=== PATIENT | female | born 1980 | race American Indian/Alaskan Native ===

== ENCOUNTER 2016-11-20 15:36 | Emergency (ER) | payer MEDICAID, OTHER | END 2016-11-20 16:00 | disposition left against medical advice (07) | LOC: DL.ED 15:36 | DX: Z53.21 Procedure and treatment not carried out due to patient leaving prior to being seen by health care provider (principal) ==

== ENCOUNTER 2017-07-22 20:59 | Emergency (ER) | payer MEDICAID, OTHER ==
[2017-07-22] MEDS ORDERED: Nitrofurantoin Monohydrate/Macrocrystalline 100 MG Cap PO ONE (22:55)
--- NOTE | 2017-07-22 23:01 | EDM.PDOC ---
ED HPI GENERAL MEDICAL PROBLEM - General Chief Complaint: Genitourinary Problem Stated Complaint: UTI [id number] Time Seen by Provider: 07/22/17 22:56 Source of Information: Reports: Patient History Limitations: Reports: No Limitations - History of Present Illness INITIAL COMMENTS - FREE TEXT/NARRATIVE: burning with urination past couple of days, unable to get in to clinic as was in [facility]. No back pain, some chills. Treatments IN HOUSE COUNSEL: Reports: NSAIDS - Related Data Allergies Allergy/AdvReac Type Severity Reaction Status Date / Time chlorpheniramine Allergy Cannot Verified 07/22/17 21:19 [From [facility]] Remember codeine [From [facility]] Allergy Cannot Verified 07/22/17 21:19 Remember dihydrocodeine bitartrate Allergy Cannot Verified 07/22/17 21:19 [From [facility]] Remember phenylephrine HCl Allergy Cannot Verified 07/22/17 21:19 [From [facility]] Remember pseudoephedrine HCl Allergy Cannot Verified 07/22/17 21:19 [From [facility]] Remember Home Meds: Home Meds medroxyPROGESTERone Acetate [Depo-Provera] 150 mg IM ASDIRECTED 07/11/15 [ History] buPROPion [Wellbutrin] 100 mg PO DAILY 07/22/17 [History] hydrOXYzine HCl [Atarax] 10 mg PO Q6H PRN 07/22/17 [History] traZODone HCl [Trazodone HCl] 50 mg PO DAILY 07/22/17 [History] Past Medical History - Past Health History Medical/Surgical History: Denies Medical/Surgical History HEENT History: Reports: None Cardiovascular History: Reports: None Respiratory History: Reports: None Gastrointestinal History: Reports: None, Cholelithiasis, Pancreatitis Genitourinary History: Reports: None Neurological History: Reports: None Psychiatric History: Reports: ADD, Anxiety, Depression Hematologic History: Reports: None Dermatologic History: Reports: None - Infectious Disease History Infectious Disease History: Reports: Chicken Pox - Past Surgical History GI Surgical History: Reports: Cholecystectomy Other GI Surgeries/Procedures: December 03, 2016 Social & Family History - Tobacco Use Smoking Status *Q: Current Some Day Smoker Years of Tobacco use: 20 Packs/Tins Daily: 2 Second Hand Smoke Exposure: Yes - Caffeine Use Caffeine Use: Reports: Coffee, Soda, Tea - Recreational Drug Use Recreational Drug Use: No ED ROS GENERAL - Review of Systems Review Of Systems: See Below Constitutional: Reports: Chills HEENT: Reports: Throat Pain Respiratory: Reports: No Symptoms Cardiovascular: Reports: No Symptoms GI/Abdominal: Reports: No Symptoms : Reports: Dysuria Musculoskeletal: Reports: Back Pain (chronic) Skin: Reports: No Symptoms Neurological: Reports: No Symptoms ED EXAM, RENAL/ - Physical Exam Exam: See Below Exam Limited By: No Limitations General Appearance: Alert Eye Exam: Bilateral Eye: EOMI Ears: Normal External Exam, Normal TMs ( mild effusion right) Nose: Normal Inspection Throat/Mouth: Normal Inspection Head: Atraumatic, Normocephalic Neck: Normal Inspection Respiratory/Chest: No Respiratory Distress, Lungs Clear Cardiovascular: Normal Peripheral Pulses, Regular Rate, Rhythm GI/Abdominal: Normal Bowel Sounds, Non-Tender Back Exam: No: CVA Tenderness (L), CVA Tenderness (R) Extremities: Normal Inspection Neurological: Alert, Oriented Skin Exam: Tattoo(s) Course - Vital Signs Last Recorded V/S: Last Vital Signs Temp 98.7 F 07/22/17 21:04 Pulse 92 07/22/17 21:04 Resp 18 07/22/17 21:04 BP Pulse Ox 97 07/22/17 21:04 - Orders/Labs/Meds Labs: Laboratory Tests 07/22/17 Range/Units 21:03 Urine Color Yellow (YELLOW) Urine Appearance Cloudy (CLEAR) Urine pH 5.5 (5.0-9.0) Ur Specific [place] 1.015 (1.005-1.030) Urine Protein Negative (NEGATIVE) Urine Glucose (UA) Negative (NEGATIVE) Urine Ketones Negative (NEGATIVE) Urine Occult Blood Trace-intact H (NEGATIVE) Urine Nitrite Positive H (NEGATIVE) Urine Bilirubin Negative (NEGATIVE) Urine Urobilinogen 0.2 (0.2-1.0) mg/dL Ur Leukocyte Esterase Moderate H (NEGATIVE) Urine RBC 0-5 /HPF Urine WBC Semi-packed H (0-5/HPF) /HPF Ur Epithelial Cells Many H /HPF Urine Bacteria Many H (0-FEW/HPF) /HPF Meds: Medications Discontinued Medications Generic Name Dose Route Start Last Admin Trade Name Freq PRN Reason Stop Dose Admin Nitrofurantoin Macrocrystals 100 mg 07/22/17 22:55 Macrobid PO 07/22/17 22:56 ONETIME ONE Departure - Departure Time of Disposition: 22:58 Disposition: Home, Self-Care 01 Condition: Good Clinical Impression: UTI, Urinary tract infectious disease - Discharge Information Instructions: Urinary Tract Infection, Adult Additional Instructions: increase fluid intake macrobid 100mg one twice daily for one week OTC - AZO or uristat per package instructions, to manage burning sensation
== END 2017-07-22 23:04 | disposition home or self-care (01) ==
LOC: DL.ED 20:59
DX: N39.0 Urinary tract infection, site not specified (principal); F17.210 Nicotine dependence, cigarettes, uncomplicated; Z88.8 Allergy status to other drugs, medicaments and biological substances; Z88.5 Allergy status to narcotic agent; Z79.899 Other long term (current) drug therapy
CPT/HCPCS: 81001; 99283; A9270

== ENCOUNTER 2019-08-03 06:35 | Day surgery (SDC) | payer MEDICAID ==
[~2019-08-03 06:35] MED LIST: Dextrose 5%-0.45% NaCl 1,000 ML IV SCH; Sodium Chloride 0.9% 10 ML Syringe FLUSH PRN
[2019-08-03] MEDS ORDERED: fentaNYL 100 MCG/2 ML SDV IV ONE ×3 (06:36→07:25)
[2019-08-03] MEDS ORDERED: Midazolam 1 MG/ML 2 ML SDV IV ONE ×3 (06:36→07:26)
[2019-08-03] MEDS ORDERED: Midazolam 1 MG/ML 2 ML SDV ONE (06:38)
[2019-08-03] MEDS ORDERED: fentaNYL 100 MCG/2 ML SDV ONE (06:38)
[2019-08-03 10:01] VITALS: BP 126/76; PULSE 74
--- NOTE | 2019-08-03 14:40 | OR ---
DATE: 08/03/2019 PROCEDURES: Esophagogastroduodenoscopy and multiple pinch biopsies. INSTRUMENT USED: [id number]-[id number] Olympus video panendoscope. PREMEDICATIONS: No oral or topical anesthesia used. Fentanyl 100 mcg intravenous, Versed 2 mg intravenous. The procedure was done under pulse oximetry, BP recording, and panel monitor. INDICATION: The patient with persistent diarrhea and dyspepsia, unexplained and not responsive to medical measures. Esophagogastroduodenoscopy is performed for detection of any active erosive lesions, H pylori status to be determined, small bowel biopsies to be obtained for celiac disease if indicated, endoscopic hemostasis therapy if needed. PROCEDURE IN DETAIL: The scope was passed with ease. Adequate visualization of the esophagus was made from proximal to distal areas. No upper esophageal lesions identified. No distal esophageal stricture. No uphill or downhill esophageal varices. No Alysia-[place] tear. No evidence of erosive esophagitis by [place] criteria. No esophageal polyp or tumor mass identified. Z-line was seen at around 40 cm distal to the oral verge, configuration consistent with grade 1 by ZAP classification. No proximal gastric varices noted. Gastric fundus examination by retroflexion showed no polypoid lesions. No gastric ulcer, malignant mass, or vascular ectasia identified. Duodenal bulb showed no ulcer. Visualized second part of the duodenum was unremarkable. Multiple pinch biopsies, 4 in number, were taken from different areas of the second part of the duodenum, and tissues were also obtained from the duodenal bulb at 9 and 12 o'clock positions and sent for any histopathologic evidence of celiac disease. Multiple pinch biopsies were also obtained from the gastric antrum and proximal body and sent for PyloriTek test for H pylori and histopathology. No bleeding was noted from any of the visualized areas at the completion of examination. Photographs were taken of the duodenal bulb, gastric antrum, fundus, and distal esophagus. IMPRESSION: Normal study. The patient tolerated the procedure well. [facility] /[id number]
== END 2019-08-03 09:40 | disposition home or self-care (01) ==
LOC: DL.ENDO 06:35
PROVIDERS: ATTEND Internal Medicine Gastroenterology
DX: K31.89 Other diseases of stomach and duodenum (principal); R19.7 Diarrhea, unspecified; F41.1 Generalized anxiety disorder; F32.9 Major depressive disorder, single episode, unspecified; E66.09 Other obesity due to excess calories; Z90.49 Acquired absence of other specified parts of digestive tract; Z88.8 Allergy status to other drugs, medicaments and biological substances; Z68.38 Body mass index [BMI] 38.0-38.9, adult
CPT/HCPCS: 43239; 87077; J2250; J3010; J7042

== ENCOUNTER 2019-08-06 06:06 | Day surgery (SDC) | payer MEDICAID ==
[2019-08-06] MEDS ORDERED: Midazolam 1 MG/ML 2 ML SDV IV ONE ×8 (06:07→07:09)
[2019-08-06] MEDS ORDERED: fentaNYL 100 MCG/2 ML SDV IV ONE ×6 (06:07→07:11)
[2019-08-06] MEDS ORDERED: Midazolam 1 MG/ML 2 ML SDV ONE (06:16)
[2019-08-06] MEDS ORDERED: fentaNYL 100 MCG/2 ML SDV ONE (06:16)
[2019-08-06] MEDS ORDERED: Dextrose 5%-0.45% NaCl 1,000 ML IV SCH (07:00)
--- NOTE | 2019-08-06 08:06 | OR ---
DATE: 08/06/2019 PROCEDURES: Total colonoscopy and multiple pinch biopsies. INSTRUMENT USED: [id number]-[id number] Olympus video colonoscope. PREMEDICATIONS: Fentanyl 150 mcg intravenous, Versed 4 mg intravenous, nasal O2 cannula. The procedure was done under pulse oximetry, BP recording, and booker. INDICATION: The patient with chronic diarrhea, unexplained and not responsive to medical measures. Colonoscopic examination is done for detection of any polypoid lesions and removal, biopsies to be obtained for any evidence of microscopic colitis, endoscopic hemostasis therapy if needed. DESCRIPTION OF PROCEDURE: Initial rectal exam showed external hemorrhoidal tags. Rigid anoscopy was normal. The colonoscope was passed with ease up to the ileocecal area. Photographs were taken of the normal-appearing cecum identified by thin-lipped ileocecal folds preventing further advancement of the instrument to visualize terminal ileum. No bleeding was noted from any of the visualized areas at the commencement of the examination. The bowel preparation was found to be adequate, Rodney scale 3 in all the regions, total score of 9. No stricture. No vascular ectasia. No large isolated ulcerations seen. No evidence of diffuse inflammatory bowel disease in the form of friability, contact bleeding, or ulcerations. No polyp or tumor mass identified. Probing the proximal sides of folds and flexures using adequate distention and clearing up the stool material, withdrawal of the scope was made. Multiple pinch biopsies were taken from the normal-appearing mucosa of the mid transverse colon, mid descending colon, and rectosigmoid, and sent for any histopathologic evidence of microscopic colitis. No bleeding was noted from any of the visualized areas at the completion of examination. IMPRESSION: External hemorrhoids. The patient tolerated the procedure well. [facility] /[id number]
[2019-08-06 11:23] VITALS: BP 105/67; PULSE 69
== END 2019-08-06 10:14 | disposition home or self-care (01) ==
LOC: DL.ENDO 06:06
PROVIDERS: ATTEND Internal Medicine Gastroenterology
DX: K52.9 Noninfective gastroenteritis and colitis, unspecified (principal); K64.4 Residual hemorrhoidal skin tags; E66.09 Other obesity due to excess calories; F41.1 Generalized anxiety disorder; F32.9 Major depressive disorder, single episode, unspecified; Z90.49 Acquired absence of other specified parts of digestive tract; Z88.8 Allergy status to other drugs, medicaments and biological substances; Z68.38 Body mass index [BMI] 38.0-38.9, adult
CPT/HCPCS: 45380; J2250; J3010; J7042

== ENCOUNTER 2019-11-24 19:06 | Observation (INO) | payer MEDICAID ==
[2019-11-24 20:11] LABS: ANION GAP 15.9 mEq/L (7-13); CHLORIDE,CL 104 mmol/L (98-107); SODIUM,NA 142 mmol/L (136-145)
[2019-11-24] MEDS ORDERED: Sodium Chloride 0.9% 1,000 ML IV ONE (21:09)
[2019-11-24] MEDS ORDERED: Iopamidol 612 MG/ML 100 ML Bottle IVPUSH ONE (21:09)
[2019-11-24] MEDS: Sodium Chloride 0.9% 10 ML Syringe FLUSH PRN (21:20)
[2019-11-24] MEDS ORDERED: Ondansetron 4 MG/2 ML SDV IV ONE (21:22)
[2019-11-24] MEDS ORDERED: fentaNYL 100 MCG/2 ML SDV IVPUSH ONE (21:27)
--- NOTE | 2019-11-24 21:30 | EDM.PDOC ---
<Yemi Sumner - Last Filed: 11/24/19 21:20> ED HPI GENERAL MEDICAL PROBLEM - General Chief Complaint: Abdominal Pain Stated Complaint: PAIN IN THE STOMACH Time Seen by Provider: 11/24/19 21:20 Source of Information: Reports: Patient History Limitations: Reports: No Limitations - History of Present Illness INITIAL COMMENTS - FREE TEXT/NARRATIVE: Patient presents for epigastric pain. She has a PMH of cholecystitis, s/p cholecystectomy, s/p bilateral tubal ligation. She began having worsening epigastric pain, 5-7/10, constant, sharp, that radiates to her back. This is associated with nausea. It began last night and she believes it was triggered by gravy as this is what started her pain that lead to her cholecystectomy. She has not tried any medications for the pain. Denies fever, chills. Epigastric Pain Score (Numeric/FACES): 4 - Related Data Allergies Allergy/AdvReac Type Severity Reaction Status Date / Time chlorpheniramine Allergy Cannot Verified 11/24/19 19:34 [From [facility]] Remember codeine [From [facility]] Allergy Cannot Verified 11/24/19 19:34 Remember dihydrocodeine bitartrate Allergy Cannot Verified 11/24/19 19:34 [From [facility]] Remember phenylephrine HCl Allergy Cannot Verified 11/24/19 19:34 [From [facility]] Remember pseudoephedrine Allergy Cannot Verified 11/24/19 19:34 [From [facility]] Remember pseudoephedrine HCl Allergy Cannot Verified 11/24/19 19:34 [From [facility]] Remember triprolidine [From [facility]] Allergy Cannot Verified 11/24/19 19:34 Remember donagel Allergy Cannot Uncoded 11/24/19 19:34 Remember Home Meds: Home Meds Pnv No.95/Ferrous Fum/Folic AC [ Vitamins Tablet] 1 tab PO DAILY 03/30/18 [History] Ergocalciferol (Vitamin D2) [Vitamin D2] 50,000 unit PO WEEKLY 08/02/19 [History] Sertraline HCl 25 mg PO DAILY 11/24/19 [History] buPROPion [Wellbutrin] 75 mg PO 1600 11/24/19 [History] buPROPion [Wellbutrin] 150 mg PO DAILY 11/24/19 [History] busPIRone [Buspar] 15 mg PO BID 11/24/19 [History] Past Medical History - Past Health History Medical/Surgical History: Denies Medical/Surgical History HEENT History: Reports: Impaired Vision Other HEENT History: wears glasses Cardiovascular History: Reports: None Respiratory History: Reports: None Gastrointestinal History: Reports: Cholelithiasis, Pancreatitis Genitourinary History: Reports: None [employer] History: Reports: Spontaneous Musculoskeletal History: Reports: None Neurological History: Reports: None Psychiatric History: Reports: ADD, Anxiety, Depression Endocrine/Metabolic History: Reports: Other (See Below) Other Endocrine/Metabolic History: PREDIABETIC Hematologic History: Reports: None Immunologic History: Reports: None Oncologic (Cancer) History: Reports: None Dermatologic History: Reports: None - Infectious Disease History Infectious Disease History: Reports: Chicken Pox - Past Surgical History HEENT Surgical History: Reports: Oral Surgery, Tonsillectomy Cardiovascular Surgical History: Reports: None GI Surgical History: Reports: Cholecystectomy Other GI Surgeries/Procedures: December 03, 2016 Female Surgical History: Reports: Tubal Ligation, Other (See Below) Other Female Surgeries/Procedures: CULPOSCOMY Endocrine Surgical History: Reports: None Neurological Surgical History: Reports: None Musculoskeletal Surgical History: Reports: None Social & Family History - Family History Family Medical History: Noncontributory Cardiac: Reports: Arrhythmia, Other (See Below) Other Cardiac Family History: heart disease Psychiatric: Reports: Depression Endocrine/Metabolic: Reports: Diabetes, Type I Oncologic: Reports: Esophageal Other Oncologic Family History: throat cancer - Tobacco Use Smoking Status *Q: Never Smoker Second Hand Smoke Exposure: No - Caffeine Use Caffeine Use: Reports: Soda - Recreational Drug Use Recreational Drug Use: Yes Drug Use in Last 12 Months: No ED ROS GENERAL - Review of Systems Review Of Systems: Comprehensive ROS is negative, except as noted in HPI. ED EXAM, GI/ABD - Physical Exam Exam: See Below Exam Limited By: No Limitations General Appearance: Alert, WD/WN, No Apparent Distress Ears: Normal External Exam, Hearing Grossly Normal Nose: Normal Inspection, No Blood Throat/Mouth: Normal Inspection, Normal Lips, Normal Voice Head: Atraumatic Neck: Normal Inspection Respiratory/Chest: No Respiratory Distress, Lungs Clear, Normal Breath Sounds, No Accessory Muscle Use Cardiovascular: Normal Peripheral Pulses, Regular Rate, Rhythm GI/Abdominal Exam: Normal Bowel Sounds, Soft, No Distention, Tender (Epigastric ) (Female) Exam: Deferred Back Exam: Normal Inspection, Full Range of Motion Extremities: Normal Inspection, Normal Range of Motion, Non-Tender Neurological: Alert, Oriented, Normal Gait, No Motor/Sensory Deficits Psychiatric: Normal Affect, Normal Mood Skin Exam: Warm Departure - Departure Disposition: Refer to Observation Clinical Impression: Pancreatitis Qualifiers: Chronicity: acute Pancreatitis type: unspecified pancreatitis type Acute pancreatitis complication: unspecified Qualified Code(s): K85.90 - Acute pancreatitis without necrosis or infection, unspecified - Discharge Information Sepsis Event Note (ED) - Evaluation Sepsis Screening Result: No Definite Risk <Payal Nroiega - Last Filed: 11/24/19 23:37> ED HPI GENERAL MEDICAL PROBLEM - History of Present Illness Onset: Today, Sudden Course - Vital Signs Last Recorded V/S: Last Vital Signs Temp 97.8 F 11/24/19 22:33 Pulse 82 11/24/19 22:33 Resp 14 11/24/19 22:33 BP 135/68 11/24/19 22:33 Pulse Ox 100 11/24/19 22:33 - Orders/Labs/Meds Orders: Active Orders 24 hr Category Date Time Status Peripheral IV Care [RC] . DIRECTED Care 11/24/19 21:09 Active Sodium Chloride 0.9% [Saline Flush] Med 11/24/19 21:09 Active 10 ml FLUSH ASDIRECTED PRN Peripheral IV Insertion Adult [OM.PC] Stat Oth 11/24/19 21:09 Ordered Medication Orders Acetaminophen (Tylenol) 650 mg PO Q4H PRN PRN Reason: Pain (Mild 1-3)/fever Heparin Sodium (Porcine) (Heparin Sodium) 5,000 units SUBCUT Q8HR JOSE ALFREDO Morphine Sulfate (Morphine) 1 mg IVPUSH Q2H PRN PRN Reason: Pain (severe 7-10) Non-Formulary Medication (Bupropion [Wellbutrin]) 75 mg PO 1600 JOSE ALFREDO Non-Formulary Medication (Bupropion [Wellbutrin]) 150 mg PO DAILY [facility] Non-Formulary Medication (Buspirone [Buspar]) 15 mg PO BID [facility] Non-Formulary Medication (Sertraline Hcl [Sertraline Hcl]) 25 mg PO DAILY [facility] Ondansetron HCl (Zofran Odt) 4 mg PO Q6H PRN PRN Reason: nausea, able to take PO Oxycodone HCl (Oxycodone) 5 mg PO Q4H PRN PRN Reason: Pain (moderate 4-6) Sodium Chloride (Saline Flush) 10 ml FLUSH ASDIRECTED PRN PRN Reason: Keep Vein Open Last Admin: 11/24/19 21:20 Dose: 10 ml Documented by: SUSI Labs: Laboratory Tests 11/24/19 11/24/19 Range/Units 19:45 19:45 WBC 8.4 (5.0-10.0) 10^3/uL RBC 5.14 (4.2-5.4) 10^6/uL Hgb 14.3 D (12.0-16.0) g/dL Hct 44.3 (37.0-47.0) % MCV 86.2 (80-100) fL MCH 27.8 (27.0-34.0) pg MCHC 32.3 L (33.0-35.0) g/dL Plt Count 247 (150-450) 10^3/uL Neut % (Auto) 72.4 (42.2-75.2) % Lymph % (Auto) 20.6 (20.5-50.1) % [place] % (Auto) 5.1 (2-8) % Eos % (Auto) 1.7 (1.0-3.0) % Baso % (Auto) 0.2 (0.0-1.0) % Sodium 142 (136-145) mmol/L Potassium 3.9 (3.5-5.1) mmol/L Chloride 104 (98-107) mmol/L Carbon Dioxide 26 (21-32) mmol/L Anion Gap 15.9 H (7-13) mEq/L BUN 12 (7-18) mg/dL Creatinine 0.92 (0.55-1.02) mg/dL Est Cr Clr Drug Dosing 91.42 mL/min Estimated GFR (MDRD) > 60 BUN/Creatinine Ratio 13.0 (No establ ref range) Glucose 200 H (74-99) mg/dL Calcium 8.5 (8.5-10.1) mg/dL Total Bilirubin 0.3 (0.2-1.0) mg/dL AST 20 (15-37) U/L ALT 39 (14-59) U/L Alkaline Phosphatase 122 H (46-116) U/L Total Protein 7.3 (6.4-8.2) g/dL Albumin 3.4 (3.4-5.0) g/dL Globulin 3.9 Albumin/Globulin Ratio 0.9 Amylase 260 H (25-115) U/L Lipase 3415 H (73-393) U/L Meds: Medications Generic Name Dose Route Start Last Admin Trade Name Fredwayne PRN Reason Stop Dose Admin Acetaminophen 650 mg 11/24/19 23:24 Tylenol PO Q4H PRN Pain (Mild 1-3)/fever Heparin Sodium (Porcine) 5,000 units 11/25/19 06:00 Heparin Sodium SUBCUT Q8HR JOSE ALFREDO Morphine Sulfate 1 mg 11/24/19 23:24 Morphine IVPUSH Q2H PRN Pain (severe 7-10) Non-Formulary Medication 75 mg 11/25/19 16:00 Bupropion [Wellbutrin] PO 1600 JOSE ALFREDO Non-Formulary Medication 150 mg 11/25/19 09:00 Bupropion [Wellbutrin] PO DAILY JOSE ALFREDO Non-Formulary Medication 15 mg 11/25/19 09:00 Buspirone [Buspar] PO BID JOSE ALFREDO Non-Formulary Medication 25 mg 11/25/19 09:00 Sertraline Hcl [Sertraline Hcl] PO DAILY JOSE ALFREDO Ondansetron HCl 4 mg 11/24/19 23:24 Zofran Odt PO Q6H PRN nausea, able to take PO Oxycodone HCl 5 mg 11/24/19 23:24 Oxycodone PO Q4H PRN Pain (moderate 4-6) Sodium Chloride 10 ml 11/24/19 21:09 11/24/19 21:20 Saline Flush FLUSH 10 ml ASDIRECTED PRN Administration Keep Vein Open Discontinued Medications Generic Name Dose Route Start Last Admin Trade Name Freq PRN Reason Stop Dose Admin Fentanyl 100 mcg 11/24/19 21:27 11/24/19 21:34 Sublimaze IVPUSH 11/24/19 21:28 100 mcg ONETIME ONE Administration Sodium Chloride 1,000 mls @ 999 mls/hr 11/24/19 21:09 11/24/19 21:19 Normal Saline IV 11/24/19 22:09 999 mls/hr .BOLUS ONE Administration Iopamidol 100 ml 11/24/19 21:09 11/24/19 21:39 Isovue-300 (61%) IVPUSH 11/24/19 21:10 100 ml ONETIME ONE Administration Ondansetron HCl 4 mg 11/24/19 21:22 11/24/19 21:31 Zofran IV 11/24/19 21:23 4 mg ONETIME ONE Administration - Radiology Interpretation Free Text/Narrative:: CT Abdomen/Pelvis w/ contrast: PROCEDURE INFORMATION: Exam: CT Abdomen And Pelvis With Contrast Exam date and time: 11/24/2019 9:44 PM Age: 38 years old Clinical indication: Other: Upper abd pain, elevated liver enzymes; Additional info: ? Pancreatitis TECHNIQUE: Imaging protocol: Computed tomography of the abdomen and pelvis with intravenous contrast. Radiation optimization: All CT scans at this facility use at least one of these dose optimization techniques: automated exposure control; mA and/or kV adjustment per patient size (includes targeted exams where dose is matched to clinical indication); or iterative reconstruction. Contrast material: [id number]; Contrast volume: 100 ml; Contrast route: INTRAVENOUS (IV); COMPARISON: MR Abdomen wo Cont 08/01/2019 8:47 AM FINDINGS: Lungs: The lung bases are clear. There are no pleural effusions. Liver: There is diffuse fatty infiltration of the liver. No focal hepatic lesions are identified. Gallbladder and bile ducts: The gallbladder is surgically absent. There is no intrahepatic biliary ductal dilatation. The common bile duct measures 11 mm in diameter. No filling defects are seen within the CBD. Pancreas: The pancreas is normal in appearance. There is, however, inflammation situated between the head of the pancreas and the 3rd portion of the duodenum. The finding is consistent with very mild pancreatitis. Spleen: The spleen is normal in size. Adrenals: The adrenal glands are normal in appearance. Kidneys and ureters: Neither kidney shows evidence of hydronephrosis or renal stone. The ureters are normal in caliber. No intraluminal filling defects are identified. Stomach and bowel: The stomach is not distended. No pathologically dilated small bowel loops are identified. There is no evidence of colonic wall thickening or pericolonic inflammation. Appendix: There is a normal appendix in the right lower quadrant. Intraperitoneal space: There is no free air or free fluid in the abdomen or pelvis. Vasculature: The abdominal aorta is normal in caliber. The celiac axis, SMA and SHAREE are patent. Lymph nodes: No pathologically enlarged lymph nodes are identified in the abdomen or pelvis. Bladder: The urinary bladder appears normal. Reproductive: The uterus is normal in appearance. No adnexal masses are identifi ed. Bones/joints: There is normal alignment throughout the visualized portion of the spine. No acute fractures or aggressive bone lesions are identified. Soft tissues: The soft tissues are within normal limits. IMPRESSION: 1. The pancreas itself appears normal, but there is subtle inflammation between the head of the pancreas in the 3rd portion of the duodenum, a finding consistent with very mild acute pancreatitis. 2. Fatty infiltration of the liver, a finding which can be due to benign steatosis versus alcoholic or non alcoholic steatohepatitis. 3. The common bile duct is dilated to 11 mm, probably compensatory status post cholecystectomy. Recommend correlation with biliary chemistries. Thank you for allowing us to participate in the care of your patient. Dictated and Authenticated by: Victorina Fishman MD 11/24/2019 10:28 PM Central Time ([place] & [place]) see rad report - Re-Assessments/Exams Free Text/Narrative Re-Assessment/Exam: 11/24/19 23:36 I saw and evaluated the patient. Discussed with resident and agree with residents findings and plan as documented in the residents note. Departure - Departure Time of Disposition: 22:21 Condition: Fair - Discharge Information *PRESCRIPTION DRUG MONITORING PROGRAM REVIEWED*: No *COPY OF PRESCRIPTION DRUG MONITORING REPORT IN PATIENT SHANKAR: No Sepsis Event Note (ED) - Focused Exam Vital Signs: Vital Signs Temp Pulse Resp BP Pulse Ox 11/24/19 19:26 98.5 F 97 16 130/55 L 98 - My Orders Last 24 Hours: My Active Orders 11/24/19 21:09 Peripheral IV Care [RC] . DIRECTED Sodium Chloride 0.9% [Saline Flush] 10 ml FLUSH ASDIRECTED PRN Peripheral IV Insertion Adult [OM.PC] Stat - Assessment/Plan Last 24 Hours: My Active Orders 11/24/19 21:09 Peripheral IV Care [RC] . DIRECTED Sodium Chloride 0.9% [Saline Flush] 10 ml FLUSH ASDIRECTED PRN Peripheral IV Insertion Adult [OM.PC] Stat
--- NOTE | 2019-11-24 22:29 | CT ---
PROCEDURE INFORMATION: Exam: CT Abdomen And Pelvis With Contrast Exam date and time: 11/24/2019 9:44 PM Age: 38 years old Clinical indication: Other: Upper abd pain, elevated liver enzymes; Additional info: ? Pancreatitis TECHNIQUE: Imaging protocol: Computed tomography of the abdomen and pelvis with intravenous contrast. Radiation optimization: All CT scans at this facility use at least one of these dose optimization techniques: automated exposure control; mA and/or kV adjustment per patient size (includes targeted exams where dose is matched to clinical indication); or iterative reconstruction. Contrast material: [id number]; Contrast volume: 100 ml; Contrast route: INTRAVENOUS (IV); COMPARISON: MR Abdomen wo Cont 08/01/2019 8:47 AM FINDINGS: Lungs: The lung bases are clear. There are no pleural effusions. Liver: There is diffuse fatty infiltration of the liver. No focal hepatic lesions are identified. Gallbladder and bile ducts: The gallbladder is surgically absent. There is no intrahepatic biliary ductal dilatation. The common bile duct measures 11 mm in diameter. No filling defects are seen within the CBD. Pancreas: The pancreas is normal in appearance. There is, however, inflammation situated between the head of the pancreas and the 3rd portion of the duodenum. The finding is consistent with very mild pancreatitis. Spleen: The spleen is normal in size. Adrenals: The adrenal glands are normal in appearance. Kidneys and ureters: Neither kidney shows evidence of hydronephrosis or renal stone. The ureters are normal in caliber. No intraluminal filling defects are identified. Stomach and bowel: The stomach is not distended. No pathologically dilated small bowel loops are identified. There is no evidence of colonic wall thickening or pericolonic inflammation. Appendix: There is a normal appendix in the right lower quadrant. Intraperitoneal space: There is no free air or free fluid in the abdomen or pelvis. Vasculature: The abdominal aorta is normal in caliber. The celiac axis, SMA and SHAREE are patent. Lymph nodes: No pathologically enlarged lymph nodes are identified in the abdomen or pelvis. Bladder: The urinary bladder appears normal. Reproductive: The uterus is normal in appearance. No adnexal masses are identified. Bones/joints: There is normal alignment throughout the visualized portion of the spine. No acute fractures or aggressive bone lesions are identified. Soft tissues: The soft tissues are within normal limits. IMPRESSION: 1. The pancreas itself appears normal, but there is subtle inflammation between the head of the pancreas in the 3rd portion of the duodenum, a finding consistent with very mild acute pancreatitis. 2. Fatty infiltration of the liver, a finding which can be due to benign steatosis versus alcoholic or non alcoholic steatohepatitis. 3. The common bile duct is dilated to 11 mm, probably compensatory status post cholecystectomy. Recommend correlation with biliary chemistries.
[2019-11-24] MEDS ORDERED: Ondansetron 4 MG Tab.DIS PO PRN (23:24)
[2019-11-24] MEDS ORDERED: 50% Dextrose in Water 50 ML Syringe IVPUSH PRN (23:43)
--- NOTE | 2019-11-24 23:43 | PCM.HP ---
H&P History of Present Illness - General Date of Service: 11/24/19 Admit Problem/Dx: Admission Diagnosis/Problem Admission Diagnosis/Problem Pancreatitis Source of Information: Patient, Provider (ER) - History of Present Illness Initial Comments - Free Text/Narative: 58-year-old lady with a history of cholecystitis status post cholecystectomy about 3 years ago. No alcohol use. No known dyslipidemia. No known diabetes Presented with epigastric abdominal pain that started on the night of 22 November. The patient previously ate sub sandwich. Developed epigastric pain radiating to the back. Associated with nausea but no vomiting. No associated fever no chills. Pain is similar to what she experienced about 3 years ago. She does have a history of acid reflux disease but the symptoms today significantly different. She has been breast-feeding. Epigastric Pain Score (Numeric/FACES): 4 - Related Data Allergies/Adverse Reactions: Allergies Allergy/AdvReac Type Severity Reaction Status Date / Time chlorpheniramine Allergy Cannot Verified 11/24/19 19:34 [From [facility]] Remember codeine [From [facility]] Allergy Cannot Verified 11/24/19 19:34 Remember dihydrocodeine bitartrate Allergy Cannot Verified 11/24/19 19:34 [From [facility]] Remember phenylephrine HCl Allergy Cannot Verified 11/24/19 19:34 [From [facility]] Remember pseudoephedrine Allergy Cannot Verified 11/24/19 19:34 [From [facility]] Remember pseudoephedrine HCl Allergy Cannot Verified 11/24/19 19:34 [From [facility]] Remember triprolidine [From [facility]] Allergy Cannot Verified 11/24/19 19:34 Remember donagel Allergy Cannot Uncoded 11/24/19 19:34 Remember Home Medications: Home Meds Pnv No.95/Ferrous Fum/Folic AC [ Vitamins Tablet] 1 tab PO DAILY 03/30/18 [History] Ergocalciferol (Vitamin D2) [Vitamin D2] 50,000 unit PO WEEKLY 08/02/19 [History] Sertraline HCl 25 mg PO DAILY 11/24/19 [History] buPROPion [Wellbutrin] 75 mg PO 1600 11/24/19 [History] buPROPion [Wellbutrin] 150 mg PO DAILY 11/24/19 [History] busPIRone [Buspar] 15 mg PO BID 11/24/19 [History] Past Medical History - Past Health History Medical/Surgical History: Denies Medical/Surgical History HEENT History: Reports: Impaired Vision Other HEENT History: wears glasses Cardiovascular History: Reports: None Respiratory History: Reports: None Gastrointestinal History: Reports: Cholelithiasis, Pancreatitis Genitourinary History: Reports: None [employer] History: Reports: Spontaneous Musculoskeletal History: Reports: None Neurological History: Reports: None Psychiatric History: Reports: ADD, Anxiety, Depression Endocrine/Metabolic History: Reports: Other (See Below) Other Endocrine/Metabolic History: PREDIABETIC Hematologic History: Reports: None, Iron Deficiency Other Hematologic History: iron deficient during usually Immunologic History: Reports: None Oncologic (Cancer) History: Reports: None Dermatologic History: Reports: None - Infectious Disease History Infectious Disease History: Reports: Chicken Pox - Past Surgical History HEENT Surgical History: Reports: Oral Surgery, Tonsillectomy Cardiovascular Surgical History: Reports: None Respiratory Surgical History: Reports: None GI Surgical History: Reports: Cholecystectomy Other GI Surgeries/Procedures: December 03, 2016 Female Surgical History: Reports: Tubal Ligation, Other (See Below) Other Female Surgeries/Procedures: CULPOSCOMY, October 30, 2019-tubal Endocrine Surgical History: Reports: None Neurological Surgical History: Reports: None Musculoskeletal Surgical History: Reports: None Social & Family History - Family History Family Medical History: Noncontributory Cardiac: Reports: Arrhythmia, Other (See Below) Other Cardiac Family History: heart disease Psychiatric: Reports: Depression Endocrine/Metabolic: Reports: Diabetes, Type I Oncologic: Reports: Esophageal Other Oncologic Family History: throat cancer - Tobacco Use Smoking Status *Q: Former Smoker Years of Tobacco use: 17 Packs/Tins Daily: 0.2 Used Tobacco, but Quit: Yes Month/Year Tobacco Last Used: May 2017 Second Hand Smoke Exposure: No - Caffeine Use Caffeine Use: Reports: None - Recreational Drug Use Recreational Drug Use: No Drug Use in Last 12 Months: No H&P Review of Systems - Review of Systems: Review Of Systems: See Below General: Reports: Malaise. Denies: Fever, Chills Pulmonary: Denies: Shortness of Breath Cardiovascular: Denies: Chest Pain, Edema Gastrointestinal: Reports: Abdominal Pain, Nausea Psychiatric: Denies: Confusion Neurological: Denies: Confusion Exam - Exam Exam: See Below - Vital Signs Vital Signs: Last Vital Signs Temp 97.8 F 11/24/19 22:33 Pulse 82 11/24/19 22:33 Resp 14 11/24/19 22:33 BP 135/68 11/24/19 22:33 Pulse Ox 100 11/24/19 22:33 Weight: 276 lb 12.8 oz - Exam General: Alert, Oriented Neck: Supple Lungs: Clear to Auscultation, Normal Respiratory Effort Cardiovascular: Regular Rate, Regular Rhythm GI/Abdominal Exam: Normal Bowel Sounds, Soft, Tender (Epigastric), Other (Obese). No: Distended Extremities: No Pedal Edema Skin: Warm, Dry Neuro Extensive - Mental Status: Alert, Oriented x3, Normal Mood/Affect - Patient Data Lab Results Last 24 hrs: Laboratory Results - last 24 hr 11/24/19 11/24/19 11/24/19 Range/Units 19:45 19:45 22:46 WBC 8.4 (5.0-10.0) 10^3/uL RBC 5.14 (4.2-5.4) 10^6/uL Hgb 14.3 D (12.0-16.0) g/dL Hct 44.3 (37.0-47.0) % MCV 86.2 (80-100) fL MCH 27.8 (27.0-34.0) pg MCHC 32.3 L (33.0-35.0) g/dL Plt Count 247 (150-450) 10^3/uL Neut % (Auto) 72.4 (42.2-75.2) % Lymph % (Auto) 20.6 (20.5-50.1) % [place] % (Auto) 5.1 (2-8) % Eos % (Auto) 1.7 (1.0-3.0) % Baso % (Auto) 0.2 (0.0-1.0) % Sodium 142 (136-145) mmol/L Potassium 3.9 (3.5-5.1) mmol/L Chloride 104 (98-107) mmol/L Carbon Dioxide 26 (21-32) mmol/L Anion Gap 15.9 H (7-13) mEq/L BUN 12 (7-18) mg/dL Creatinine 0.92 (0.55-1.02) mg/dL Est Cr Clr Drug Dosing 91.42 mL/min Estimated GFR (MDRD) > 60 BUN/Creatinine Ratio 13.0 (No establ ref range) Glucose 200 H (74-99) mg/dL Calcium 8.5 (8.5-10.1) mg/dL Total Bilirubin 0.3 (0.2-1.0) mg/dL AST 20 (15-37) U/L ALT 39 (14-59) U/L Alkaline Phosphatase 122 H (46-116) U/L Total Protein 7.3 (6.4-8.2) g/dL Albumin 3.4 (3.4-5.0) g/dL Globulin 3.9 Albumin/Globulin Ratio 0.9 Amylase 260 H (25-115) U/L Lipase 3415 H (73-393) U/L Urine Color (YELLOW) Urine Appearance (CLEAR) Urine pH (5.0-9.0) Ur Specific [place] (1.005-1.030) Urine Protein (NEGATIVE) Urine Glucose (UA) (NEGATIVE) Urine Ketones (NEGATIVE) Urine Occult Blood (NEGATIVE) Urine Nitrite (NEGATIVE) Urine Bilirubin (NEGATIVE) Urine Urobilinogen (0.2-1.0) mg/dL Ur Leukocyte Esterase (NEGATIVE) Urine HCG, Qual Negative 11/24/19 Range/Units 22:47 WBC (5.0-10.0) 10^3/uL RBC (4.2-5.4) 10^6/uL Hgb (12.0-16.0) g/dL Hct (37.0-47.0) % MCV (80-100) fL MCH (27.0-34.0) pg MCHC (33.0-35.0) g/dL Plt Count (150-450) 10^3/uL Neut % (Auto) (42.2-75.2) % Lymph % (Auto) (20.5-50.1) % [place] % (Auto) (2-8) % Eos % (Auto) (1.0-3.0) % Baso % (Auto) (0.0-1.0) % Sodium (136-145) mmol/L Potassium (3.5-5.1) mmol/L Chloride (98-107) mmol/L Carbon Dioxide (21-32) mmol/L Anion Gap (7-13) mEq/L BUN (7-18) mg/dL Creatinine (0.55-1.02) mg/dL Est Cr Clr Drug Dosing mL/min Estimated GFR (MDRD) BUN/Creatinine Ratio (No establ ref range) Glucose (74-99) mg/dL Calcium (8.5-10.1) mg/dL Total Bilirubin (0.2-1.0) mg/dL AST (15-37) U/L ALT (14-59) U/L Alkaline Phosphatase (46-116) U/L Total Protein (6.4-8.2) g/dL Albumin (3.4-5.0) g/dL Globulin Albumin/Globulin Ratio Amylase (25-115) U/L Lipase (73-393) U/L Urine Color Yellow (YELLOW) Urine Appearance Clear (CLEAR) Urine pH 5.5 (5.0-9.0) Ur Specific [place] 1.025 (1.005-1.030) Urine Protein Negative (NEGATIVE) Urine Glucose (UA) Negative (NEGATIVE) Urine Ketones Negative (NEGATIVE) Urine Occult Blood Negative (NEGATIVE) Urine Nitrite Negative (NEGATIVE) Urine Bilirubin Negative (NEGATIVE) Urine Urobilinogen 0.2 (0.2-1.0) mg/dL Ur Leukocyte Esterase Negative (NEGATIVE) Urine HCG, Qual Result Diagrams: 11/24/19 19:45 11/24/19 19:45 - Problem List (1) Hyperglycemia SNOMED Code(s): 08241919 ICD Code: R73.9 - HYPERGLYCEMIA, UNSPECIFIED Status: Acute Current Visit: Yes (2) Depression SNOMED Code(s): 95748637 ICD Code: F32.9 - MAJOR DEPRESSIVE DISORDER, SINGLE EPISODE, UNSPECIFIED Status: Acute Current Visit: Yes (3) Anxiety SNOMED Code(s): 75119312 ICD Code: F41.9 - ANXIETY DISORDER, UNSPECIFIED Status: Acute Current Visit: Yes (4) Pancreatitis SNOMED Code(s): 02260052 ICD Code: K85.90 - ACUTE PANCREATITIS WITHOUT NECROSIS OR INFECTION, UNSP Status: Acute Current Visit: Yes Qualifiers: Chronicity: acute Pancreatitis type: unspecified pancreatitis type Acute pancreatitis complication: unspecified Qualified Code(s): K85.90 - Acute pancreatitis without necrosis or infection, unspecified Problem List Initiated/Reviewed/Updated: Yes Orders Last 24hrs: Active Orders 24 hr Category Date Time Status Admission Diagnosis [ADT] Stat ADT 11/24/19 22:20 Ordered Admission Status [Patient Status] [ADT] Routine ADT 11/24/19 22:20 Active Antiembolic Devices [RC] PER UNIT ROUTINE Care 11/24/19 23:26 Ordered Oxygen Therapy [RC] PRN Care 11/24/19 23:24 Ordered Peripheral IV Care [RC] . DIRECTED Care 11/24/19 21:09 Active Up With Assistance [RC] ASDIRECTED Care 11/24/19 23:24 Ordered VTE/DVT Education [RC] PER UNIT ROUTINE Care 11/24/19 23:24 Ordered Vital Signs [RC] Q4H Care 11/24/19 23:24 Ordered Nothing per Oral Now Diet [DIET] Diet 11/24/19 Breakfast Ordered BASIC METABOLIC PANEL,BMP [CHEM] AM Lab 11/25/19 05:15 Ordered CBC WITH AUTO DIFF [HEME] AM Lab 11/25/19 05:15 Ordered HEPATIC FUNCTION PANEL,HFP [CHEM] AM Lab 11/25/19 05:11 Ordered LIPASE [CHEM] AM Lab 11/25/19 05:11 Ordered LIPID PANEL [CHEM] AM Lab 11/25/19 05:11 Ordered Acetaminophen [Tylenol] Med 11/24/19 23:24 Ordered 650 mg PO Q4H PRN Heparin Sodium Med 11/25/19 06:00 Ordered 5,000 units SUBCUT Q8HR Morphine Med 11/24/19 23:24 Ordered 1 mg IVPUSH Q2H PRN Ondansetron [Zofran ODT] Med 11/24/19 23:24 Ordered 4 mg PO Q6H PRN Pantoprazole [ProTONIX] Med 11/25/19 21:00 Ordered 40 mg PO BEDTIME Sertraline HCl [Sertraline HCl] Med 11/25/19 09:00 Ordered 25 mg PO DAILY Sodium Chloride 0.9% [Saline Flush] Med 11/24/19 21:09 Active 10 ml FLUSH ASDIRECTED PRN Sodium Chloride 0.9% with KCl 20 mEq @ 150 mL/Hr (1000 Med 11/24/19 23:45 Ordered mL) NS + KCl 20mEq/L [Normal Saline with 20 mEq KCl] 1,000 ml IV ASDIRECTED buPROPion [Wellbutrin] Med 11/25/19 09:00 Ordered 150 mg PO DAILY buPROPion [Wellbutrin] Med 11/25/19 16:00 Ordered 75 mg PO 1600 busPIRone [Buspar] Med 11/25/19 09:00 Ordered 15 mg PO BID oxyCODONE Med 11/24/19 23:24 Ordered 5 mg PO Q4H PRN Antiembolic Hose [OM.PC] Per Unit Routine Oth 11/24/19 23:25 Ordered Peripheral IV Insertion Adult [OM.PC] Stat Oth 11/24/19 21:09 Ordered Resuscitation Status Routine Resus Stat 11/24/19 23:24 Ordered Medication Orders Acetaminophen (Tylenol) 650 mg PO Q4H PRN PRN Reason: Pain (Mild 1-3)/fever Heparin Sodium (Porcine) (Heparin Sodium) 5,000 units SUBCUT Q8HR JOSE ALFREDO Potassium Chloride/Sodium Chloride (Normal Saline With 20 Meq Kcl) 1,000 mls @ 150 mls/hr IV ASDIRECTED JOSE ALFREDO Morphine Sulfate (Morphine) 1 mg IVPUSH Q2H PRN PRN Reason: Pain (severe 7-10) Non-Formulary Medication (Bupropion [Wellbutrin]) 75 mg PO 1600 JOSE ALFREDO Non-Formulary Medication (Bupropion [Wellbutrin]) 150 mg PO DAILY [facility] Non-Formulary Medication (Buspirone [Buspar]) 15 mg PO BID [facility] Non-Formulary Medication (Sertraline Hcl [Sertraline Hcl]) 25 mg PO DAILY [facility] Ondansetron HCl (Zofran Odt) 4 mg PO Q6H PRN PRN Reason: nausea, able to take PO Oxycodone HCl (Oxycodone) 5 mg PO Q4H PRN PRN Reason: Pain (moderate 4-6) Pantoprazole Sodium (Protonix) 40 mg PO BEDTIME [facility] Sodium Chloride (Saline Flush) 10 ml FLUSH ASDIRECTED PRN PRN Reason: Keep Vein Open Last Admin: 11/24/19 21:20 Dose: 10 ml Documented by: SUSI Assessment/Plan Comment:: 38-year-old with a history of prior cholecystectomy resented with abdominal pain. CT of the abdomen is pending Clinically appears to have pancreatitis based on abdominal pain, elevated lipase Liver enzymes are normal. Follow CT results for possible stone in the common bile duct Recheck liver enzymes in the morning Recheck lipase in the morning Etiology of pancreatitis is unclear Will check triglyceride level Keep nothing by mouth except ice chips IV fluids Pain medication with oxycodone for moderate pain, IV morphine for severe pain Follow electrolytes and replace them as needed Elevated blood sugar noted We'll follow blood sugars Use supplemental insulin and hypoglycemia protocol if needed Depression, anxiety Continue home medications DVT prophylaxis with subcutaneous heparin
[2019-11-25] MEDS: Morphine 2 MG/ML SYRINGE IVPUSH PRN ×2 (00:02→07:44)
[2019-11-25] MEDS: Sodium Chloride 0.9% 10 ML Syringe FLUSH PRN (00:04)
[2019-11-25] MEDS: NS + KCl 20mEq/L 1,000 ML IV SCH ×2 (00:08→06:24)
[2019-11-25] MEDS: oxyCODONE 5 MG Tab PO PRN ×3 (00:21→20:31)
[2019-11-25 06:09] LABS: ANION GAP 12.8 mEq/L (7-13); CHLORIDE,CL 109 mmol/L (98-107); SODIUM,NA 142 mmol/L (136-145)
[2019-11-25] MEDS: Heparin Sodium 5,000 Units/ML Vial SUBCUT SCH ×3 (06:22→23:21)
[2019-11-25] MEDS: Acetaminophen 325 MG Tab PO PRN ×4 (06:31→20:29)
[2019-11-25] MEDS: Sertraline 50 MG Tab PO SCH (08:29)
[2019-11-25] MEDS: busPIRone 5 MG Tab PO SCH ×2 (08:29→23:22)
[2019-11-25] MEDS: Insulin Lispro 100 Units/ML 3 ML Vial SUBCUT SCH ×4 (08:30→23:20)
[2019-11-25] MEDS ORDERED: BUPROPION 150 MG PO SCH (09:00)
--- NOTE | 2019-11-25 11:44 | PCM.PN ---
- General Info Date of Service: 11/25/19 Admission Dx/Problem (Free Text): Admission Diagnosis/Problem Admission Diagnosis/Problem Pancreatitis Functional Status: Denies: Tolerating Diet - Review of Systems General: Denies: Fever Pulmonary: Denies: Shortness of Breath Cardiovascular: Denies: Chest Pain Gastrointestinal: Reports: Abdominal Pain (improved, epigastric, moderate, was worse after water, better with morphine) Neurological: Denies: Confusion - Patient Data Vitals - Most Recent: Last Vital Signs Temp 98.7 F 11/25/19 07:43 Pulse 72 11/25/19 07:43 Resp 16 11/25/19 07:43 BP 109/59 L 11/25/19 07:43 Pulse Ox 97 11/25/19 07:43 Weight - Most Recent: 276 lb 12.8 oz I&O - Last 24 Hours: Intake & Output 11/24/19 11/25/19 11/25/19 22:59 06:59 14:59 Intake Total 960 Output Total 675 Balance 285 Lab Results Last 24 Hours: Laboratory Results - last 24 hr 11/24/19 11/24/19 11/24/19 Range/Units 19:45 19:45 22:46 WBC 8.4 (5.0-10.0) 10^3/uL RBC 5.14 (4.2-5.4) 10^6/uL Hgb 14.3 D (12.0-16.0) g/dL Hct 44.3 (37.0-47.0) % MCV 86.2 (80-100) fL MCH 27.8 (27.0-34.0) pg MCHC 32.3 L (33.0-35.0) g/dL Plt Count 247 (150-450) 10^3/uL Neut % (Auto) 72.4 (42.2-75.2) % Lymph % (Auto) 20.6 (20.5-50.1) % [place] % (Auto) 5.1 (2-8) % Eos % (Auto) 1.7 (1.0-3.0) % Baso % (Auto) 0.2 (0.0-1.0) % Sodium 142 (136-145) mmol/L Potassium 3.9 (3.5-5.1) mmol/L Chloride 104 (98-107) mmol/L Carbon Dioxide 26 (21-32) mmol/L Anion Gap 15.9 H (7-13) mEq/L BUN 12 (7-18) mg/dL Creatinine 0.92 (0.55-1.02) mg/dL Est Cr Clr Drug Dosing 91.42 mL/min Estimated GFR (MDRD) > 60 BUN/Creatinine Ratio 13.0 (No establ ref range) Glucose 200 H (74-99) mg/dL POC Glucose (70-105) mg/dl Calcium 8.5 (8.5-10.1) mg/dL Total Bilirubin 0.3 (0.2-1.0) mg/dL Direct Bilirubin (0.0-0.2) mg/dL Indirect Bilirubin AST 20 (15-37) U/L ALT 39 (14-59) U/L Alkaline Phosphatase 122 H (46-116) U/L Total Protein 7.3 (6.4-8.2) g/dL Albumin 3.4 (3.4-5.0) g/dL Globulin 3.9 Albumin/Globulin Ratio 0.9 Triglycerides (0-149) mg/dL Cholesterol (0-199) mg/dL LDL Cholesterol, Calc (0-100) mg/dL HDL Cholesterol (40-59) mg/dL Amylase 260 H (25-115) U/L Lipase 3415 H (73-393) U/L Urine Color (YELLOW) Urine Appearance (CLEAR) Urine pH (5.0-9.0) Ur Specific [place] (1.005-1.030) Urine Protein (NEGATIVE) Urine Glucose (UA) (NEGATIVE) Urine Ketones (NEGATIVE) Urine Occult Blood (NEGATIVE) Urine Nitrite (NEGATIVE) Urine Bilirubin (NEGATIVE) Urine Urobilinogen (0.2-1.0) mg/dL Ur Leukocyte Esterase (NEGATIVE) Urine HCG, Qual Negative 11/24/19 11/25/19 11/25/19 Range/Units 22:47 05:40 05:40 WBC 8.4 (5.0-10.0) 10^3/uL RBC 4.67 (4.2-5.4) 10^6/uL Hgb 13.0 (12.0-16.0) g/dL Hct 40.6 (37.0-47.0) % MCV 86.9 (80-100) fL MCH 27.8 (27.0-34.0) pg MCHC 32.0 L (33.0-35.0) g/dL Plt Count 223 (150-450) 10^3/uL Neut % (Auto) 65.4 (42.2-75.2) % Lymph % (Auto) 25.5 (20.5-50.1) % [place] % (Auto) 6.4 (2-8) % Eos % (Auto) 2.6 (1.0-3.0) % Baso % (Auto) 0.1 (0.0-1.0) % Sodium 142 (136-145) mmol/L Potassium 3.8 (3.5-5.1) mmol/L Chloride 109 H (98-107) mmol/L Carbon Dioxide 24 (21-32) mmol/L Anion Gap 12.8 (7-13) mEq/L BUN 8 (7-18) mg/dL Creatinine 0.84 (0.55-1.02) mg/dL Est Cr Clr Drug Dosing 100.12 mL/min Estimated GFR (MDRD) > 60 BUN/Creatinine Ratio (No establ ref range) Glucose 89 (74-99) mg/dL POC Glucose (70-105) mg/dl Calcium 7.5 L (8.5-10.1) mg/dL Total Bilirubin 0.5 (0.2-1.0) mg/dL Direct Bilirubin 0.2 (0.0-0.2) mg/dL Indirect Bilirubin 0.3 AST 19 (15-37) U/L ALT 35 (14-59) U/L Alkaline Phosphatase 88 (46-116) U/L Total Protein 6.2 L (6.4-8.2) g/dL Albumin 2.8 L (3.4-5.0) g/dL Globulin 3.4 Albumin/Globulin Ratio 0.82 Triglycerides 35 (0-149) mg/dL Cholesterol 99 (0-199) mg/dL LDL Cholesterol, Calc 50 (0-100) mg/dL HDL Cholesterol 42 (40-59) mg/dL Amylase (25-115) U/L Lipase 870 H (73-393) U/L Urine Color Yellow (YELLOW) Urine Appearance Clear (CLEAR) Urine pH 5.5 (5.0-9.0) Ur Specific [place] 1.025 (1.005-1.030) Urine Protein Negative (NEGATIVE) Urine Glucose (UA) Negative (NEGATIVE) Urine Ketones Negative (NEGATIVE) Urine Occult Blood Negative (NEGATIVE) Urine Nitrite Negative (NEGATIVE) Urine Bilirubin Negative (NEGATIVE) Urine Urobilinogen 0.2 (0.2-1.0) mg/dL Ur Leukocyte Esterase Negative (NEGATIVE) Urine HCG, Qual 11/25/19 Range/Units 07:53 WBC (5.0-10.0) 10^3/uL RBC (4.2-5.4) 10^6/uL Hgb (12.0-16.0) g/dL Hct (37.0-47.0) % MCV (80-100) fL MCH (27.0-34.0) pg MCHC (33.0-35.0) g/dL Plt Count (150-450) 10^3/uL Neut % (Auto) (42.2-75.2) % Lymph % (Auto) (20.5-50.1) % [place] % (Auto) (2-8) % Eos % (Auto) (1.0-3.0) % Baso % (Auto) (0.0-1.0) % Sodium (136-145) mmol/L Potassium (3.5-5.1) mmol/L Chloride (98-107) mmol/L Carbon Dioxide (21-32) mmol/L Anion Gap (7-13) mEq/L BUN (7-18) mg/dL Creatinine (0.55-1.02) mg/dL Est Cr Clr Drug Dosing mL/min Estimated GFR (MDRD) BUN/Creatinine Ratio (No establ ref range) Glucose (74-99) mg/dL POC Glucose 80 (70-105) mg/dl Calcium (8.5-10.1) mg/dL Total Bilirubin (0.2-1.0) mg/dL Direct Bilirubin (0.0-0.2) mg/dL Indirect Bilirubin AST (15-37) U/L ALT (14-59) U/L Alkaline Phosphatase (46-116) U/L Total Protein (6.4-8.2) g/dL Albumin (3.4-5.0) g/dL Globulin Albumin/Globulin Ratio Triglycerides (0-149) mg/dL Cholesterol (0-199) mg/dL LDL Cholesterol, Calc (0-100) mg/dL HDL Cholesterol (40-59) mg/dL Amylase (25-115) U/L Lipase (73-393) U/L Urine Color (YELLOW) Urine Appearance (CLEAR) Urine pH (5.0-9.0) Ur Specific [place] (1.005-1.030) Urine Protein (NEGATIVE) Urine Glucose (UA) (NEGATIVE) Urine Ketones (NEGATIVE) Urine Occult Blood (NEGATIVE) Urine Nitrite (NEGATIVE) Urine Bilirubin (NEGATIVE) Urine Urobilinogen (0.2-1.0) mg/dL Ur Leukocyte Esterase (NEGATIVE) Urine HCG, Qual Med Orders - Current: Current Medications Acetaminophen (Tylenol) 650 mg PO Q4H PRN PRN Reason: Pain (Mild 1-3)/fever Last Admin: 11/25/19 11:35 Dose: 650 mg Documented by: Bupropion HCl (Wellbutrin Sr) 150 mg PO DAILY [facility] Bupropion HCl (Wellbutrin Sr) 75 mg PO .QPM [facility] Buspirone HCl (Buspar) 15 mg PO BID [facility] Last Admin: 11/25/19 08:29 Dose: 15 mg Documented by: Dextrose/Water (Dextrose 50% In Water) 25 ml IVPUSH Q1H PRN PRN Reason: blood sugar <70 Heparin Sodium (Porcine) (Heparin Sodium) 5,000 units SUBCUT Q8HR [facility] Last Admin: 11/25/19 06:22 Dose: 5,000 units Documented by: Potassium Chloride/Sodium Chloride (Normal Saline With 20 Meq Kcl) 1,000 mls @ 150 mls/hr IV ASDIRECTED [facility] Last Admin: 11/25/19 06:24 Dose: 150 mls/hr Documented by: Insulin Human Lispro (Humalog) 0 unit SUBCUT QIDACANDBED [facility]; Protocol Last Admin: 11/25/19 08:30 Dose: Not Given Documented by: Morphine Sulfate (Morphine) 1 mg IVPUSH Q2H PRN PRN Reason: Pain (severe 7-10) Last Admin: 11/25/19 07:44 Dose: 1 mg Documented by: Ondansetron HCl (Zofran Odt) 4 mg PO Q6H PRN PRN Reason: nausea, able to take PO Oxycodone HCl (Oxycodone) 5 mg PO Q4H PRN PRN Reason: Pain (moderate 4-6) Last Admin: 11/25/19 00:21 Dose: 5 mg Documented by: Pantoprazole Sodium (Protonix) 40 mg PO BEDTIME [facility] Sertraline HCl (Zoloft) 25 mg PO DAILY [facility] Last Admin: 11/25/19 08:29 Dose: 25 mg Documented by: Sodium Chloride (Saline Flush) 10 ml FLUSH ASDIRECTED PRN PRN Reason: Keep Vein Open Last Admin: 11/25/19 00:04 Dose: 10 ml Documented by: Discontinued Medications Fentanyl (Sublimaze) 100 mcg IVPUSH ONETIME ONE Stop: 11/24/19 21:28 Last Admin: 11/24/19 21:34 Dose: 100 mcg Documented by: Sodium Chloride (Normal Saline) 1,000 mls @ 999 mls/hr IV .BOLUS ONE Stop: 11/24/19 22:09 Last Admin: 11/24/19 21:19 Dose: 999 mls/hr Documented by: Iopamidol (Isovue-300 (61%)) 100 ml IVPUSH ONETIME ONE Stop: 11/24/19 21:10 Last Admin: 11/24/19 21:39 Dose: 100 ml Documented by: Non-Formulary Medication (Bupropion [Wellbutrin]) 75 mg PO 1600 [facility] Non-Formulary Medication (Bupropion [Wellbutrin]) 150 mg PO DAILY [facility] Ondansetron HCl (Zofran) 4 mg IV ONETIME ONE Stop: 11/24/19 21:23 Last Admin: 11/24/19 21:31 Dose: 4 mg Documented by: - Exam General: Alert, Oriented Neck: Supple Lungs: Clear to Auscultation, Normal Respiratory Effort Cardiovascular: Regular Rate, Regular Rhythm GI/Abdominal Exam: Normal Bowel Sounds, Soft, Tender (epigastric tenderness). No: Rigid, Rebound Extremities: No Pedal Edema Skin: Warm, Dry Psy/Mental Status: Alert, Normal Affect, Normal Mood Sepsis Event Note - Evaluation Sepsis Screening Result: No Definite Risk - Focused Exam Vital Signs: Vital Signs Temp Pulse Resp BP Pulse Ox 11/25/19 07:43 98.7 F 72 16 109/59 L 97 11/25/19 04:00 98.6 F 80 16 101/59 L 95 Date Exam was Performed: 11/25/19 Time Exam was Performed: 11:44 - Problem List & Annotations (1) Hyperglycemia SNOMED Code(s): 39794199 Code(s): R73.9 - HYPERGLYCEMIA, UNSPECIFIED Status: Acute Current Visit: Yes (2) Depression SNOMED Code(s): 65630704 Code(s): F32.9 - MAJOR DEPRESSIVE DISORDER, SINGLE EPISODE, UNSPECIFIED Status: Acute Current Visit: Yes (3) Anxiety SNOMED Code(s): 34461224 Code(s): F41.9 - ANXIETY DISORDER, UNSPECIFIED Status: Acute Current Visit: Yes (4) Pancreatitis SNOMED Code(s): 43947230 Code(s): K85.90 - ACUTE PANCREATITIS WITHOUT NECROSIS OR INFECTION, UNSP Status: Acute Current Visit: Yes Qualifiers: Chronicity: acute Pancreatitis type: unspecified pancreatitis type Acute pancreatitis complication: unspecified Qualified Code(s): K85.90 - Acute pancreatitis without necrosis or infection, unspecified - Problem List Review Problem List Initiated/Reviewed/Updated: Yes - My Orders Last 24 Hours: My Active Orders 11/24/19 23:24 Oxygen Therapy [RC] PRN Up With Assistance [RC] ASDIRECTED VTE/DVT Education [RC] PER UNIT ROUTINE Vital Signs [RC] Q4H Acetaminophen [Tylenol] 650 mg PO Q4H PRN Morphine 1 mg IVPUSH Q2H PRN Ondansetron [Zofran ODT] 4 mg PO Q6H PRN oxyCODONE 5 mg PO Q4H PRN Resuscitation Status Routine 11/24/19 23:25 Antiembolic Hose [OM.PC] Per Unit Routine 11/24/19 23:26 Antiembolic Devices [RC] 11/24/19 23:43 Glucose [Blood Glucose Check, Bedside] [RC] QIDACANDBED Dextrose 50% in Water 25 ml IVPUSH Q1H PRN 11/24/19 23:45 NS + KCl 20mEq/L [Normal Saline with 20 mEq KCl] 1,000 ml IV ASDIRECTED 11/25/19 06:00 Heparin Sodium 5,000 units SUBCUT Q8HR 11/25/19 07:00 Insulin Lispro [HumaLOG] See Protocol SUBCUT QIDACANDBED 11/25/19 09:00 Sertraline [Zoloft] 25 mg PO DAILY busPIRone [Buspar] 15 mg PO BID 11/25/19 11:45 buPROPion [Wellbutrin SR] 150 mg PO DAILY 11/25/19 Lunch Full Liquid Diet [DIET] 11/25/19 17:00 buPROPion [Wellbutrin SR] 75 mg PO .QPM 11/25/19 21:00 Pantoprazole [ProTONIX] 40 mg PO BEDTIME 11/26/19 05:11 HEPATIC FUNCTION PANEL,HFP [CHEM] AM LIPASE [CHEM] AM MAGNESIUM [CHEM] AM PHOSPHORUS [CHEM] AM 11/26/19 05:15 BASIC METABOLIC PANEL,BMP [CHEM] AM CBC WITH AUTO DIFF [HEME] AM - Plan Plan:: 38-year-old with a history of prior cholecystectomy resented with abdominal pain. CT of the abdomen showed mild pancreatitis Clinically appears to have pancreatitis based on abdominal pain, elevated lipase Liver enzymes are normal. Lipase is improving Etiology of pancreatitis is unclear Liver enzymes are normal, minimally elevated alkaline phosphatase normalized Normal triglyceride level No apparent common bile duct stone We'll advance diet as tolerated Continue IV hydration with electrolyte supplement Pain medication with oxycodone for moderate pain, IV morphine for severe pain Follow electrolytes and replace them as needed Elevated blood sugar noted on admission Further blood sugars are improved We'll follow blood sugars Use supplemental insulin and hypoglycemia protocol if needed Depression, anxiety Continue home medications DVT prophylaxis with subcutaneous heparin
[2019-11-25] MEDS: buPROPion 150 MG Tab.SR PO SCH (14:18)
[2019-11-25] MEDS: Lactated Ringers 1,000 ML IV SCH (15:06)
[2019-11-25] MEDS ORDERED: Non-Formulary Medication 1 Each (Bupropion [Wellbutrin] 75 MG) PO SCH (16:00)
[2019-11-25] MEDS ORDERED: buPROPion 150 MG Tab.SR PO SCH (17:00)
[2019-11-25] MEDS ORDERED: Pantoprazole 40 MG Tab.CR PO SCH (21:00)
[2019-11-26] MEDS: Lactated Ringers 1,000 ML IV SCH ×2 (02:02→11:39)
[2019-11-26 06:26] LABS: ANION GAP 11.8 mEq/L (7-13); CHLORIDE,CL 106 mmol/L (98-107); SODIUM,NA 141 mmol/L (136-145)
[2019-11-26] MEDS: Heparin Sodium 5,000 Units/ML Vial SUBCUT SCH (06:59)
[2019-11-26] MEDS: Insulin Lispro 100 Units/ML 3 ML Vial SUBCUT SCH ×2 (08:15→12:17)
[2019-11-26] MEDS: busPIRone 5 MG Tab PO SCH (08:55)
[2019-11-26] MEDS: Acetaminophen 325 MG Tab PO PRN (08:56)
[2019-11-26] MEDS: Sertraline 50 MG Tab PO SCH (09:00)
[2019-11-26] MEDS: buPROPion 150 MG Tab.SR PO SCH (09:00)
[2019-11-26 11:11] VITALS: BP 106/68; PULSE 77
--- NOTE | 2019-11-26 11:18 | PCM.PN ---
- General Info Date of Service: 11/26/19 Admission Dx/Problem (Free Text): Admission Diagnosis/Problem Admission Diagnosis/Problem Pancreatitis Subjective Update: pain is still present when eating moved from being epigastric to mid abdomen. No associated fever. No further hyperglycemia but had episodes of lower blood sugars. No chest pain, shortness of breath. Functional Status: Reports: Pain Controlled - Review of Systems General: Denies: Fever Pulmonary: Denies: Shortness of Breath Cardiovascular: Denies: Chest Pain, Edema Gastrointestinal: Reports: Abdominal Pain Genitourinary: Denies: Dysuria Psychiatric: Denies: Confusion - Patient Data Vitals - Most Recent: Last Vital Signs Temp 100.6 F 11/26/19 11:09 Pulse 77 11/26/19 11:09 Resp 16 11/26/19 11:09 BP 106/68 11/26/19 11:09 Pulse Ox 95 11/26/19 11:09 Weight - Most Recent: 276 lb 12.8 oz I&O - Last 24 Hours: Intake & Output 11/25/19 11/26/19 11/26/19 22:59 06:59 14:59 Intake Total 555 665 4581 Balance 073 134 3091 Lab Results Last 24 Hours: Laboratory Results - last 24 hr 11/25/19 11/25/19 11/25/19 Range/Units 11:45 15:39 16:17 WBC (5.0-10.0) 10^3/uL RBC (4.2-5.4) 10^6/uL Hgb (12.0-16.0) g/dL Hct (37.0-47.0) % MCV (80-100) fL MCH (27.0-34.0) pg MCHC (33.0-35.0) g/dL Plt Count (150-450) 10^3/uL Neut % (Auto) (42.2-75.2) % Lymph % (Auto) (20.5-50.1) % [place] % (Auto) (2-8) % Eos % (Auto) (1.0-3.0) % Baso % (Auto) (0.0-1.0) % Sodium (136-145) mmol/L Potassium (3.5-5.1) mmol/L Chloride (98-107) mmol/L Carbon Dioxide (21-32) mmol/L Anion Gap (7-13) mEq/L BUN (7-18) mg/dL Creatinine (0.55-1.02) mg/dL Est Cr Clr Drug Dosing mL/min Estimated GFR (MDRD) Glucose (74-99) mg/dL POC Glucose 73 53 L 80 (70-105) mg/dl Calcium (8.5-10.1) mg/dL Phosphorus (2.6-4.7) mg/dL Magnesium (1.8-2.4) mg/dL Total Bilirubin (0.2-1.0) mg/dL Direct Bilirubin (0.0-0.2) mg/dL Indirect Bilirubin AST (15-37) U/L ALT (14-59) U/L Alkaline Phosphatase (46-116) U/L Total Protein (6.4-8.2) g/dL Albumin (3.4-5.0) g/dL Globulin Albumin/Globulin Ratio Lipase (73-393) U/L 11/25/19 11/25/19 11/25/19 Range/Units 16:52 21:04 21:39 WBC (5.0-10.0) 10^3/uL RBC (4.2-5.4) 10^6/uL Hgb (12.0-16.0) g/dL Hct (37.0-47.0) % MCV (80-100) fL MCH (27.0-34.0) pg MCHC (33.0-35.0) g/dL Plt Count (150-450) 10^3/uL Neut % (Auto) (42.2-75.2) % Lymph % (Auto) (20.5-50.1) % [place] % (Auto) (2-8) % Eos % (Auto) (1.0-3.0) % Baso % (Auto) (0.0-1.0) % Sodium (136-145) mmol/L Potassium (3.5-5.1) mmol/L Chloride (98-107) mmol/L Carbon Dioxide (21-32) mmol/L Anion Gap (7-13) mEq/L BUN (7-18) mg/dL Creatinine (0.55-1.02) mg/dL Est Cr Clr Drug Dosing mL/min Estimated GFR (MDRD) Glucose (74-99) mg/dL POC Glucose 115 H 62 L 109 H (70-105) mg/dl Calcium (8.5-10.1) mg/dL Phosphorus (2.6-4.7) mg/dL Magnesium (1.8-2.4) mg/dL Total Bilirubin (0.2-1.0) mg/dL Direct Bilirubin (0.0-0.2) mg/dL Indirect Bilirubin AST (15-37) U/L ALT (14-59) U/L Alkaline Phosphatase (46-116) U/L Total Protein (6.4-8.2) g/dL Albumin (3.4-5.0) g/dL Globulin Albumin/Globulin Ratio Lipase (73-393) U/L 11/26/19 11/26/19 11/26/19 Range/Units 05:30 05:30 07:24 WBC 7.7 (5.0-10.0) 10^3/uL RBC 4.73 (4.2-5.4) 10^6/uL Hgb 13.3 (12.0-16.0) g/dL Hct 41.0 (37.0-47.0) % MCV 86.7 (80-100) fL MCH 28.1 (27.0-34.0) pg MCHC 32.4 L (33.0-35.0) g/dL Plt Count 231 (150-450) 10^3/uL Neut % (Auto) 59.5 (42.2-75.2) % Lymph % (Auto) 29.1 (20.5-50.1) % [place] % (Auto) 6.5 (2-8) % Eos % (Auto) 4.5 H (1.0-3.0) % Baso % (Auto) 0.4 (0.0-1.0) % Sodium 141 (136-145) mmol/L Potassium 3.8 (3.5-5.1) mmol/L Chloride 106 (98-107) mmol/L Carbon Dioxide 27 (21-32) mmol/L Anion Gap 11.8 (7-13) mEq/L BUN 5 L (7-18) mg/dL Creatinine 0.78 (0.55-1.02) mg/dL Est Cr Clr Drug Dosing 106.79 mL/min Estimated GFR (MDRD) > 60 Glucose 79 (74-99) mg/dL POC Glucose 83 (70-105) mg/dl Calcium 8.4 L (8.5-10.1) mg/dL Phosphorus 4.1 (2.6-4.7) mg/dL Magnesium 2.0 (1.8-2.4) mg/dL Total Bilirubin 0.5 (0.2-1.0) mg/dL Direct Bilirubin 0.1 (0.0-0.2) mg/dL Indirect Bilirubin 0.4 AST 21 (15-37) U/L ALT 36 (14-59) U/L Alkaline Phosphatase 91 (46-116) U/L Total Protein 6.6 (6.4-8.2) g/dL Albumin 3.0 L (3.4-5.0) g/dL Globulin 3.6 Albumin/Globulin Ratio 0.83 Lipase 152 (73-393) U/L // Range/Units 10:53 WBC (5.0-10.0) 10^3/uL RBC (4.2-5.4) 10^6/uL Hgb (12.0-16.0) g/dL Hct (37.0-47.0) % MCV (80-100) fL MCH (27.0-34.0) pg MCHC (33.0-35.0) g/dL Plt Count (150-450) 10^3/uL Neut % (Auto) (42.2-75.2) % Lymph % (Auto) (20.5-50.1) % [place] % (Auto) (2-8) % Eos % (Auto) (1.0-3.0) % Baso % (Auto) (0.0-1.0) % Sodium (136-145) mmol/L Potassium (3.5-5.1) mmol/L Chloride (98-107) mmol/L Carbon Dioxide (21-32) mmol/L Anion Gap (7-13) mEq/L BUN (7-18) mg/dL Creatinine (0.55-1.02) mg/dL Est Cr Clr Drug Dosing mL/min Estimated GFR (MDRD) Glucose (74-99) mg/dL POC Glucose 88 (70-105) mg/dl Calcium (8.5-10.1) mg/dL Phosphorus (2.6-4.7) mg/dL Magnesium (1.8-2.4) mg/dL Total Bilirubin (0.2-1.0) mg/dL Direct Bilirubin (0.0-0.2) mg/dL Indirect Bilirubin AST (15-37) U/L ALT (14-59) U/L Alkaline Phosphatase (46-116) U/L Total Protein (6.4-8.2) g/dL Albumin (3.4-5.0) g/dL Globulin Albumin/Globulin Ratio Lipase (73-393) U/L Med Orders - Current: Current Medications Acetaminophen (Tylenol) 650 mg PO Q4H PRN PRN Reason: Pain (Mild 1-3)/fever Last Admin: 11/26/19 08:56 Dose: 650 mg Documented by: Bupropion HCl (Wellbutrin Sr) 150 mg PO DAILY [facility] Last Admin: 11/26/19 09:00 Dose: 150 mg Documented by: Bupropion HCl (Wellbutrin Sr) 75 mg PO DAILY@1700 [facility] Last Admin: 11/25/19 18:47 Dose: 75 mg Documented by: Buspirone HCl (Buspar) 15 mg PO BID [facility] Last Admin: 11/26/19 08:55 Dose: 15 mg Documented by: Dextrose/Water (Dextrose 50% In Water) 25 ml IVPUSH Q1H PRN PRN Reason: blood sugar <70 Heparin Sodium (Porcine) (Heparin Sodium) 5,000 units SUBCUT Q8HR [facility] Last Admin: 11/26/19 06:59 Dose: 5,000 units Documented by: Lactated Ringer's (Ringers, Lactated) 1,000 mls @ 100 mls/hr IV ASDIRECTED [facility] Last Admin: 11/26/19 02:02 Dose: 100 mls/hr Documented by: Insulin Human Lispro (Humalog) 0 unit SUBCUT QIDACANDBED [facility]; Protocol Last Admin: 11/26/19 08:15 Dose: Not Given Documented by: Morphine Sulfate (Morphine) 1 mg IVPUSH Q2H PRN PRN Reason: Pain (severe 7-10) Last Admin: 11/25/19 07:44 Dose: 1 mg Documented by: Ondansetron HCl (Zofran Odt) 4 mg PO Q6H PRN PRN Reason: nausea, able to take PO Last Admin: 11/25/19 15:30 Dose: 4 mg Documented by: Oxycodone HCl (Oxycodone) 5 mg PO Q4H PRN PRN Reason: Pain (moderate 4-6) Last Admin: 11/25/19 20:31 Dose: 5 mg Documented by: Pantoprazole Sodium (Protonix) 40 mg PO BEDTIME [facility] Last Admin: 11/25/19 23:22 Dose: 40 mg Documented by: Sertraline HCl (Zoloft) 25 mg PO DAILY [facility] Last Admin: 11/26/19 09:00 Dose: 25 mg Documented by: Sodium Chloride (Saline Flush) 10 ml FLUSH ASDIRECTED PRN PRN Reason: Keep Vein Open Last Admin: 11/25/19 00:04 Dose: 10 ml Documented by: Discontinued Medications Fentanyl (Sublimaze) 100 mcg IVPUSH ONETIME ONE Stop: 11/24/19 21:28 Last Admin: 11/24/19 21:34 Dose: 100 mcg Documented by: Sodium Chloride (Normal Saline) 1,000 mls @ 999 mls/hr IV .BOLUS ONE Stop: 11/24/19 22:09 Last Admin: 11/24/19 21:19 Dose: 999 mls/hr Documented by: Potassium Chloride/Sodium Chloride (Normal Saline With 20 Meq Kcl) 1,000 mls @ 150 mls/hr IV ASDIRECTED [facility] Last Admin: 11/25/19 06:24 Dose: 150 mls/hr Documented by: Iopamidol (Isovue-300 (61%)) 100 ml IVPUSH ONETIME ONE Stop: 11/24/19 21:10 Last Admin: 11/24/19 21:39 Dose: 100 ml Documented by: Non-Formulary Medication (Bupropion [Wellbutrin]) 75 mg PO 1600 [facility] Non-Formulary Medication (Bupropion [Wellbutrin]) 150 mg PO DAILY [facility] Last Admin: 11/25/19 12:52 Dose: Not Given Documented by: Ondansetron HCl (Zofran) 4 mg IV ONETIME ONE Stop: 11/24/19 21:23 Last Admin: 11/24/19 21:31 Dose: 4 mg Documented by: - Exam General: Alert, Oriented Neck: Supple Lungs: Clear to Auscultation, Normal Respiratory Effort Cardiovascular: Regular Rate, Regular Rhythm GI/Abdominal Exam: Normal Bowel Sounds, Soft, Tender. No: Rebound Extremities: No Pedal Edema Sepsis Event Note - Evaluation Sepsis Screening Result: No Definite Risk - Focused Exam Vital Signs: Vital Signs Temp Pulse Resp BP Pulse Ox 11/26/19 11:09 100.6 F 77 16 106/68 95 11/26/19 07:47 99.0 F 75 16 113/71 96 Date Exam was Performed: 11/26/19 Time Exam was Performed: 11:15 - Problem List & Annotations (1) Hyperglycemia SNOMED Code(s): 68694081 Code(s): R73.9 - HYPERGLYCEMIA, UNSPECIFIED Status: Acute Current Visit: Yes (2) Depression SNOMED Code(s): 82325507 Code(s): F32.9 - MAJOR DEPRESSIVE DISORDER, SINGLE EPISODE, UNSPECIFIED Status: Acute Current Visit: Yes (3) Anxiety SNOMED Code(s): 05433181 Code(s): F41.9 - ANXIETY DISORDER, UNSPECIFIED Status: Acute Current Visit: Yes (4) Pancreatitis SNOMED Code(s): 62593049 Code(s): K85.90 - ACUTE PANCREATITIS WITHOUT NECROSIS OR INFECTION, UNSP Status: Acute Current Visit: Yes Qualifiers: Chronicity: acute Pancreatitis type: unspecified pancreatitis type Acute pancreatitis complication: unspecified Qualified Code(s): K85.90 - Acute pancreatitis without necrosis or infection, unspecified - Problem List Review Problem List Initiated/Reviewed/Updated: Yes - My Orders Last 24 Hours: My Active Orders 11/25/19 11:45 buPROPion [Wellbutrin SR] 150 mg PO DAILY 11/25/19 Lunch Full Liquid Diet [DIET] 11/25/19 15:00 Lactated Ringers [Ringers, Lactated] 1,000 ml IV ASDIRECTED 11/25/19 17:00 buPROPion [Wellbutrin SR] 75 mg PO DAILY@1700 11/25/19 21:00 Pantoprazole [ProTONIX] 40 mg PO BEDTIME 11/26/19 Lunch General [Regular Diet] [DIET] - Plan Plan:: 38-year-old with a history of prior cholecystectomy resented with abdominal pain. CT of the abdomen showed mild pancreatitis Clinically appears to have pancreatitis based on abdominal pain, elevated lipase Liver enzymes are normal. Lipase is back to normal Etiology of pancreatitis is unclear Liver enzymes are normal, minimally elevated alkaline phosphatase normalized Normal triglyceride level No apparent common bile duct stone We'll advance diet further as tolerated Continue IV hydration with electrolyte supplement Pain medication with oxycodone for moderate pain, IV morphine for severe pain Follow electrolytes and replace them as needed History of glucose intolerance Elevated blood sugar noted on admission Further blood sugars are improved in fact had episodes of hypoglycemia managed with eating We'll follow blood sugars Use supplemental insulin and hypoglycemia protocol if needed Depression, anxiety Continue home medications DVT prophylaxis with subcutaneous heparin
--- NOTE | 2019-11-26 12:56 | PCM.DCSUM1 ---
Discharge Summary - Hospital Course Free Text/Narrative:: 38-year-old with a history of prior cholecystectomy resented with abdominal pain. CT of the abdomen showed mild pancreatitis Clinically appears to have pancreatitis based on abdominal pain, elevated lipase Liver enzymes are normal. Lipase is back to normal Etiology of pancreatitis is unclear Liver enzymes are normal, minimally elevated alkaline phosphatase normalized Normal triglyceride level No apparent common bile duct stone tolerating diet Pain medication with oxycodone for severe pain only History of glucose intolerance Elevated blood sugar noted on admission Further blood sugars are improved in fact had episodes of hypoglycemia - managed with eating Depression, anxiety Continue prior home medications Diagnosis: Stroke: No - Discharge Data Discharge Date: 11/26/19 Discharge Disposition: Home, Self-Care 01 Preliminary Cause of *Q: Cardiac Arrest Condition: Stable - Referral to Home Health Primary Care Physician: PCP None - Discharge Diagnosis/Problem(s) (1) Hyperglycemia SNOMED Code(s): 24674535 ICD Code: R73.9 - HYPERGLYCEMIA, UNSPECIFIED Status: Acute Current Visit: Yes (2) Depression SNOMED Code(s): 95593191 ICD Code: F32.9 - MAJOR DEPRESSIVE DISORDER, SINGLE EPISODE, UNSPECIFIED Status: Acute Current Visit: Yes (3) Anxiety SNOMED Code(s): 12523342 ICD Code: F41.9 - ANXIETY DISORDER, UNSPECIFIED Status: Acute Current Visit: Yes (4) Pancreatitis SNOMED Code(s): 74129438 ICD Code: K85.90 - ACUTE PANCREATITIS WITHOUT NECROSIS OR INFECTION, UNSP Status: Acute Current Visit: Yes Qualifiers: Chronicity: acute Pancreatitis type: unspecified pancreatitis type Acute pancreatitis complication: unspecified Qualified Code(s): K85.90 - Acute pancreatitis without necrosis or infection, unspecified - Patient Instructions Diet: Heart Healthy Diet Activity: As Tolerated - Discharge Plan *PRESCRIPTION DRUG MONITORING PROGRAM REVIEWED*: No *COPY OF PRESCRIPTION DRUG MONITORING REPORT IN PATIENT SHANKAR: No Prescriptions/Med Rec: oxyCODONE 5 mg PO Q4H PRN #5 tablet PRN Reason: Pain (Severe 7-10) Pantoprazole [ProTONIX] 40 mg PO BEDTIME #14 tab.cr Home Medications: Home Meds Pnv No.95/Ferrous Fum/Folic AC [ Vitamins Tablet] 1 tab PO DAILY 03/30/18 [History] Ergocalciferol (Vitamin D2) [Vitamin D2] 50,000 unit PO WEEKLY 08/02/19 [History] Sertraline HCl 25 mg PO DAILY 11/24/19 [History] buPROPion [Wellbutrin] 75 mg PO 1600 11/24/19 [History] buPROPion [Wellbutrin] 150 mg PO DAILY 11/24/19 [History] busPIRone [Buspar] 15 mg PO BID 11/24/19 [History] Pantoprazole [ProTONIX] 40 mg PO BEDTIME #14 tab.cr 11/26/19 [Rx] oxyCODONE 5 mg PO Q4H PRN #5 tablet 11/26/19 [Rx] Patient Handouts: Acute Pancreatitis, [id number], Pancreatitis Eating Plan - Discharge Summary/Plan Comment DC Time >30 min.: No - Patient Data Vitals - Most Recent: Last Vital Signs Temp 100.6 F 11/26/19 11:09 Pulse 77 11/26/19 11:09 Resp 16 11/26/19 11:09 BP 106/68 11/26/19 11:09 Pulse Ox 95 11/26/19 11:09 Weight - Most Recent: 276 lb 12.8 oz I&O - Last 24 hours: Intake & Output 11/25/19 11/26/19 11/26/19 22:59 06:59 14:59 Intake Total 074 [id number] Balance 406 186 5826 Lab Results - Last 24 hrs: Laboratory Results - last 24 hr 11/25/19 11/25/19 11/25/19 Range/Units 15:39 16:17 16:52 WBC (5.0-10.0) 10^3/uL RBC (4.2-5.4) 10^6/uL Hgb (12.0-16.0) g/dL Hct (37.0-47.0) % MCV (80-100) fL MCH (27.0-34.0) pg MCHC (33.0-35.0) g/dL Plt Count (150-450) 10^3/uL Neut % (Auto) (42.2-75.2) % Lymph % (Auto) (20.5-50.1) % [place] % (Auto) (2-8) % Eos % (Auto) (1.0-3.0) % Baso % (Auto) (0.0-1.0) % Sodium (136-145) mmol/L Potassium (3.5-5.1) mmol/L Chloride (98-107) mmol/L Carbon Dioxide (21-32) mmol/L Anion Gap (7-13) mEq/L BUN (7-18) mg/dL Creatinine (0.55-1.02) mg/dL Est Cr Clr Drug Dosing mL/min Estimated GFR (MDRD) Glucose (74-99) mg/dL POC Glucose 53 L 80 115 H (70-105) mg/dl Calcium (8.5-10.1) mg/dL Phosphorus (2.6-4.7) mg/dL Magnesium (1.8-2.4) mg/dL Total Bilirubin (0.2-1.0) mg/dL Direct Bilirubin (0.0-0.2) mg/dL Indirect Bilirubin AST (15-37) U/L ALT (14-59) U/L Alkaline Phosphatase (46-116) U/L Total Protein (6.4-8.2) g/dL Albumin (3.4-5.0) g/dL Globulin Albumin/Globulin Ratio Lipase (73-393) U/L 11/25/19 11/25/19 11/26/19 Range/Units 21:04 21:39 05:30 WBC (5.0-10.0) 10^3/uL RBC (4.2-5.4) 10^6/uL Hgb (12.0-16.0) g/dL Hct (37.0-47.0) % MCV (80-100) fL MCH (27.0-34.0) pg MCHC (33.0-35.0) g/dL Plt Count (150-450) 10^3/uL Neut % (Auto) (42.2-75.2) % Lymph % (Auto) (20.5-50.1) % [place] % (Auto) (2-8) % Eos % (Auto) (1.0-3.0) % Baso % (Auto) (0.0-1.0) % Sodium 141 (136-145) mmol/L Potassium 3.8 (3.5-5.1) mmol/L Chloride 106 (98-107) mmol/L Carbon Dioxide 27 (21-32) mmol/L Anion Gap 11.8 (7-13) mEq/L BUN 5 L (7-18) mg/dL Creatinine 0.78 (0.55-1.02) mg/dL Est Cr Clr Drug Dosing 106.79 mL/min Estimated GFR (MDRD) > 60 Glucose 79 (74-99) mg/dL POC Glucose 62 L 109 H (70-105) mg/dl Calcium 8.4 L (8.5-10.1) mg/dL Phosphorus 4.1 (2.6-4.7) mg/dL Magnesium 2.0 (1.8-2.4) mg/dL Total Bilirubin 0.5 (0.2-1.0) mg/dL Direct Bilirubin 0.1 (0.0-0.2) mg/dL Indirect Bilirubin 0.4 AST 21 (15-37) U/L ALT 36 (14-59) U/L Alkaline Phosphatase 91 (46-116) U/L Total Protein 6.6 (6.4-8.2) g/dL Albumin 3.0 L (3.4-5.0) g/dL Globulin 3.6 Albumin/Globulin Ratio 0.83 Lipase 152 (73-393) U/L 11/26/19 11/26/19 11/26/19 Range/Units 05:30 07:24 10:53 WBC 7.7 (5.0-10.0) 10^3/uL RBC 4.73 (4.2-5.4) 10^6/uL Hgb 13.3 (12.0-16.0) g/dL Hct 41.0 (37.0-47.0) % MCV 86.7 (80-100) fL MCH 28.1 (27.0-34.0) pg MCHC 32.4 L (33.0-35.0) g/dL Plt Count 231 (150-450) 10^3/uL Neut % (Auto) 59.5 (42.2-75.2) % Lymph % (Auto) 29.1 (20.5-50.1) % [place] % (Auto) 6.5 (2-8) % Eos % (Auto) 4.5 H (1.0-3.0) % Baso % (Auto) 0.4 (0.0-1.0) % Sodium (136-145) mmol/L Potassium (3.5-5.1) mmol/L Chloride (98-107) mmol/L Carbon Dioxide (21-32) mmol/L Anion Gap (7-13) mEq/L BUN (7-18) mg/dL Creatinine (0.55-1.02) mg/dL Est Cr Clr Drug Dosing mL/min Estimated GFR (MDRD) Glucose (74-99) mg/dL POC Glucose 83 88 (70-105) mg/dl Calcium (8.5-10.1) mg/dL Phosphorus (2.6-4.7) mg/dL Magnesium (1.8-2.4) mg/dL Total Bilirubin (0.2-1.0) mg/dL Direct Bilirubin (0.0-0.2) mg/dL Indirect Bilirubin AST (15-37) U/L ALT (14-59) U/L Alkaline Phosphatase (46-116) U/L Total Protein (6.4-8.2) g/dL Albumin (3.4-5.0) g/dL Globulin Albumin/Globulin Ratio Lipase (73-393) U/L Med Orders - Current: Current Medications Acetaminophen (Tylenol) 650 mg PO Q4H PRN PRN Reason: Pain (Mild 1-3)/fever Last Admin: 11/26/19 08:56 Dose: 650 mg Documented by: Bupropion HCl (Wellbutrin Sr) 150 mg PO DAILY [facility] Last Admin: 11/26/19 09:00 Dose: 150 mg Documented by: Bupropion HCl (Wellbutrin Sr) 75 mg PO DAILY@1700 [facility] Last Admin: 11/25/19 18:47 Dose: 75 mg Documented by: Buspirone HCl (Buspar) 15 mg PO BID [facility] Last Admin: 11/26/19 08:55 Dose: 15 mg Documented by: Dextrose/Water (Dextrose 50% In Water) 25 ml IVPUSH Q1H PRN PRN Reason: blood sugar <70 Heparin Sodium (Porcine) (Heparin Sodium) 5,000 units SUBCUT Q8HR [facility] Last Admin: 11/26/19 06:59 Dose: 5,000 units Documented by: Lactated Ringer's (Ringers, Lactated) 1,000 mls @ 100 mls/hr IV ASDIRECTED [facility] Last Admin: 11/26/19 11:39 Dose: 100 mls/hr Documented by: Insulin Human Lispro (Humalog) 0 unit SUBCUT QIDACANDBED [facility]; Protocol Last Admin: 11/26/19 12:17 Dose: Not Given Documented by: Morphine Sulfate (Morphine) 1 mg IVPUSH Q2H PRN PRN Reason: Pain (severe 7-10) Last Admin: 11/25/19 07:44 Dose: 1 mg Documented by: Ondansetron HCl (Zofran Odt) 4 mg PO Q6H PRN PRN Reason: nausea, able to take PO Last Admin: 11/25/19 15:30 Dose: 4 mg Documented by: Oxycodone HCl (Oxycodone) 5 mg PO Q4H PRN PRN Reason: Pain (moderate 4-6) Last Admin: 11/25/19 20:31 Dose: 5 mg Documented by: Pantoprazole Sodium (Protonix) 40 mg PO BEDTIME [facility] Last Admin: 11/25/19 23:22 Dose: 40 mg Documented by: Sertraline HCl (Zoloft) 25 mg PO DAILY [facility] Last Admin: 11/26/19 09:00 Dose: 25 mg Documented by: Sodium Chloride (Saline Flush) 10 ml FLUSH ASDIRECTED PRN PRN Reason: Keep Vein Open Last Admin: 11/25/19 00:04 Dose: 10 ml Documented by: Discontinued Medications Fentanyl (Sublimaze) 100 mcg IVPUSH ONETIME ONE Stop: 11/24/19 21:28 Last Admin: 11/24/19 21:34 Dose: 100 mcg Documented by: Sodium Chloride (Normal Saline) 1,000 mls @ 999 mls/hr IV .BOLUS ONE Stop: 11/24/19 22:09 Last Admin: 11/24/19 21:19 Dose: 999 mls/hr Documented by: Potassium Chloride/Sodium Chloride (Normal Saline With 20 Meq Kcl) 1,000 mls @ 150 mls/hr IV ASDIRECTED [facility] Last Admin: 11/25/19 06:24 Dose: 150 mls/hr Documented by: Iopamidol (Isovue-300 (61%)) 100 ml IVPUSH ONETIME ONE Stop: 11/24/19 21:10 Last Admin: 11/24/19 21:39 Dose: 100 ml Documented by: Non-Formulary Medication (Bupropion [Wellbutrin]) 75 mg PO 1600 JOSE ALFREDO Non-Formulary Medication (Bupropion [Wellbutrin]) 150 mg PO DAILY [facility] Last Admin: 11/25/19 12:52 Dose: Not Given Documented by: Ondansetron HCl (Zofran) 4 mg IV ONETIME ONE Stop: 11/24/19 21:23 Last Admin: 11/24/19 21:31 Dose: 4 mg Documented by: - Exam General: Reports: Alert, Oriented Neck: Reports: Supple Lungs: Reports: Clear to Auscultation, Normal Respiratory Effort Cardiovascular: Reports: Regular Rate, Regular Rhythm GI/Abdominal Exam: Normal Bowel Sounds, Soft, Tender (mild) Extremities: No Pedal Edema Skin: Reports: Warm, Dry
== END 2019-11-26 13:45 | disposition home or self-care (01) ==
LOC: DL.ED 19:06 → DL.MS 22:20
PROVIDERS: ADMIT Internal Medicine; ATTEND Internal Medicine
DX: K85.90 Acute pancreatitis without necrosis or infection, unspecified (principal); F41.9 Anxiety disorder, unspecified; F32.9 Major depressive disorder, single episode, unspecified; R73.9 Hyperglycemia, unspecified; Z87.19 Personal history of other diseases of the digestive system; Z90.49 Acquired absence of other specified parts of digestive tract; Z87.891 Personal history of nicotine dependence; Z88.5 Allergy status to narcotic agent; Z88.8 Allergy status to other drugs, medicaments and biological substances
CPT/HCPCS: 36415; 74177; 80048; 80053; 80061; 80076; 81003; 81025; 82150; 82962; 83690; 83735; 84100; 85025; 96361; 96372; 96374; 96375; 96376; 99285-25; A9270-GY; G0378; J1644; J2270; J2405; J3010; J3480; J7030; J7120; Q9967

== ENCOUNTER 2020-08-04 13:34 | Emergency (ER) | payer MEDICAID ==
[2020-08-04 13:50] VITALS: BP 120/75; PULSE 78
[2020-08-04] MEDS ORDERED: HYDROmorphone 1 MG/ML Syringe IVPUSH ONE (14:38)
--- NOTE | 2020-08-04 14:45 | EDM.PDOC ---
ED HPI GENERAL MEDICAL PROBLEM - General Chief Complaint: Lower Extremity Injury/Pain Stated Complaint: LEFT POSSIBLE BROKEN Time Seen by Provider: 08/04/20 13:55 Source of Information: Reports: Patient, RN, RN Notes Reviewed History Limitations: Reports: No Limitations - History of Present Illness INITIAL COMMENTS - FREE TEXT/NARRATIVE: Patient presents to the ED via personal vehicle with complaints of pain to left lateral ankle. The patient reports she was walking down the stairs outside of her home about 45 minutes ago when she internally rolled her ankle. She fell onto her ankle and experienced significant pain. She denies loss of consciousness during the fall and did not strike her head. She has not taken any pain medications and has not trialed any supportive cares. She does attest to difficulty with weight bearing. She attests to pain in the anterior lateral ankle with dorsiflexion and plantarflexion. She denies loss of sensory function to the extremity. Left Ankle Pain Score (Numeric/FACES): 8 - Related Data Allergies Allergy/AdvReac Type Severity Reaction Status Date / Time chlorpheniramine Allergy Cannot Verified 08/04/20 13:51 [From [facility]] Remember dihydrocodeine bitartrate Allergy Cannot Verified 08/04/20 13:51 [From [facility]] Remember phenylephrine HCl Allergy Cannot Verified 08/04/20 13:51 [From [facility]] Remember pseudoephedrine Allergy Cannot Verified 08/04/20 13:51 [From [facility]] Remember pseudoephedrine HCl Allergy Cannot Verified 08/04/20 13:51 [From [facility]] Remember triprolidine [From [facility]] Allergy Cannot Verified 08/04/20 13:51 Remember donagel Allergy Cannot Uncoded 08/04/20 13:51 Remember Home Meds: Home Meds Pnv No.95/Ferrous Fum/Folic AC [ Vitamins Tablet] 1 tab PO DAILY 03/30/18 [History] Ergocalciferol (Vitamin D2) [Vitamin D2] 50,000 unit PO WEEKLY 08/02/19 [History] Sertraline HCl 25 mg PO DAILY 11/24/19 [History] buPROPion [Wellbutrin] 75 mg PO 1600 11/24/19 [History] buPROPion [Wellbutrin] 150 mg PO DAILY 11/24/19 [History] busPIRone [Buspar] 15 mg PO BID 11/24/19 [History] Pantoprazole [ProTONIX] 40 mg PO BEDTIME #14 tab.cr 11/26/19 [Rx] oxyCODONE 5 mg PO Q4H PRN #5 tablet 11/26/19 [Rx] Past Medical History - Past Health History Medical/Surgical History: Denies Medical/Surgical History HEENT History: Reports: Impaired Vision Other HEENT History: wears glasses Cardiovascular History: Reports: None Respiratory History: Reports: None Gastrointestinal History: Reports: Cholelithiasis, Pancreatitis Genitourinary History: Reports: None ZONE MANAGER History: Reports: Spontaneous Musculoskeletal History: Reports: None Neurological History: Reports: None Psychiatric History: Reports: ADD, Anxiety, Depression Endocrine/Metabolic History: Reports: Other (See Below) Other Endocrine/Metabolic History: PREDIABETIC Hematologic History: Reports: None, Iron Deficiency Other Hematologic History: iron deficient during usually Immunologic History: Reports: None Oncologic (Cancer) History: Reports: None Dermatologic History: Reports: None - Infectious Disease History Infectious Disease History: Reports: Chicken Pox - Past Surgical History Head Surgeries/Procedures: Reports: None HEENT Surgical History: Reports: Oral Surgery, Tonsillectomy Cardiovascular Surgical History: Reports: None Respiratory Surgical History: Reports: None GI Surgical History: Reports: Cholecystectomy Other GI Surgeries/Procedures: December 03, 2016 Female Surgical History: Reports: Tubal Ligation, Other (See Below) Other Female Surgeries/Procedures: CULPOSCOMY, October 30, 2019-tubal Endocrine Surgical History: Reports: None Neurological Surgical History: Reports: None Musculoskeletal Surgical History: Reports: None Social & Family History - Family History Family Medical History: No Pertinent Family History Cardiac: Reports: Arrhythmia, Other (See Below) Other Cardiac Family History: heart disease Psychiatric: Reports: Depression Endocrine/Metabolic: Reports: Diabetes, Type I Oncologic: Reports: Esophageal Other Oncologic Family History: throat cancer - Tobacco Use Tobacco Use Status *Q: Never Tobacco User - Caffeine Use Caffeine Use: Reports: None - Recreational Drug Use Recreational Drug Use: No Review of Systems - Review of Systems Review Of Systems: Comprehensive ROS is negative, except as noted in HPI. ED EXAM, GENERAL - Physical Exam Exam: See Below Exam Limited By: No Limitations General Appearance: Alert, No Apparent Distress Eye Exam: Bilateral Eye: EOMI, Normal Inspection, PERRL (3mm) Throat/Mouth: Normal Inspection, Normal Voice, No Airway Compromise Head: Atraumatic, Normocephalic Neck: Normal Inspection, Supple, Non-Tender, Full Range of Motion Respiratory/Chest: No Respiratory Distress, Lungs Clear, Normal Breath Sounds, No Accessory Muscle Use, Chest Non-Tender Cardiovascular: Normal Peripheral Pulses, Regular Rate, Rhythm, No Edema, No Gallop, No JVD, No Murmur, No Rub Peripheral Pulses: 1+: Posterior Tibial (L), Posterior Tibial (R), 2+: Brachial (R), Radial (L), Dorsalis Pedis (L), Dorsalis Pedis (R) GI/Abdominal: Normal Bowel Sounds, Soft, Non-Tender, No Distention, No Mass, Pelvis Stable Extremities: No Pedal Edema, Normal Capillary Refill, Joint Swelling (To left lateral ankle), Leg Pain (To left lateral ankle, gross deformity appreciated), Limited Range of Motion (To left lateral ankle), Increased Warmth (To left lateral ankle) Neurological: Alert, Oriented, CN II-XII Intact, Normal Cognition, No Motor/Sensory Deficits, Abnormal Gait (Patient utilizing wheelchair as she is unable to bear weight to left lower extremity) Psychiatric: Normal Affect, Normal Mood Skin Exam: Warm, Dry, Intact, Ecchymosis (To left lateral ankle), Erythema (To left lateral ankle), Increased Warmth (To left lateral ankle), Other (No open wounds appreciated, No mottling or pallor) Course - Vital Signs Last Recorded V/S: Last Vital Signs Temp 97.9 F 08/04/20 13:48 Pulse 78 08/04/20 13:48 Resp 18 08/04/20 13:48 BP 120/75 08/04/20 13:48 Pulse Ox 97 08/04/20 13:48 - Orders/Labs/Meds Meds: Medications Discontinued Medications Generic Name Dose Route Start Last Admin Trade Name Freq PRN Reason Stop Dose Admin Hydromorphone HCl 1 mg 08/04/20 14:38 08/04/20 14:48 Hydromorphone 1 Mg/Ml Syringe IVPUSH 08/04/20 14:39 1 mg ONETIME ONE Administration - Re-Assessments/Exams Free Text/Narrative Re-Assessment/Exam: 08/04/20 Patient verbalized moderate improvement in pain following Dilaudid administration. XRay of left ankle remarkable for distal fibular fracture with 4mm lateral dislocation of the distal lateral malleolar fragment. Images pushed to [facility] in [place] and case discussed with Dr. Valladares, orthopedic surgeon. Dr. Valladares recommends a walking boot with crutches as no weight bearing to the left lower extremity is heavily encouraged. Dr. Valladares states he will leave a clinic appointment open for the patient in two days, 08/06/21, to discuss further treatment of fracture. Findings of examination and imaging discussed with patient. Reviewed plan from Dr. Valladares, including need for follow up in [place] in two days for further evaluation and treatment of fracture. Patient fitted with walking boot, cr utches, and was given prescription Percocet. Supportive cares until evaluation by orthopedic surgeon reviewed. Red flag signs and symptoms which would warrant immediate reevaluation discussed. Patient verbalized understanding and agreement with the plan of care. Departure - Departure Time of Disposition: 15:33 Disposition: Home, Self-Care 01 Condition: Good Clinical Impression: Fibula fracture Qualifiers: Encounter type: initial encounter Fibula location: lateral malleolus Fracture type: closed Fracture alignment: displaced Laterality: left Qualified Code(s): S82.62XA - Displaced fracture of lateral malleolus of left fibula, initial encounter for closed fracture - Discharge Information *PRESCRIPTION DRUG MONITORING PROGRAM REVIEWED*: Not Applicable *COPY OF PRESCRIPTION DRUG MONITORING REPORT IN PATIENT SHANKAR: Not Applicable Forms: ED Department Discharge Additional Instructions: Rx: Percocet 1.) Schedule your appointment with Dr. Valladares (orthopedic surgery) at [facility] in [place] for Tuesday (08/06/20). Their number is [phone]. 2.) Take your Percocet every six hours, as pain persists. With your Percocet take one additional Tylenol 325mg tab. 3.) You may also take ibuprofen (Advil/Motrin) 400mg every six hours, as pain persists. You may stagger these medications so you are taking a dose of medication every three hours. 4.) Keep your boot in place and avoid bearing weight; you may undo the straps to ice the ankle for 20 minutes every hour. Sepsis Event Note (ED) - Evaluation Sepsis Screening Result: No Definite Risk
--- NOTE | 2020-08-04 14:59 | CR ---
EXAMINATION: Ankle Min 3V Lt SEX: Female AGE: 39 years CLINICAL HISTORY: 39-year-old female injured left ankle (gross deformity of joint). INTERPRETATION: Abnormal. 1. Pronounced asymmetric soft tissue swelling anteriorly and laterally left ankle. 2. Mortise joint symmetrically intact; acute fracture distal left fibula (4 mm lateral displacement of the distal lateral malleolar fragment with otherwise reasonable apposition and near anatomic alignment). 3. No sign of other fracture or dislocation left ankle. 4. Large heel spurs the insertion of plantar aponeurosis and Achilles tendon on the os calcis. 5. No foreign bodies.
== END 2020-08-04 15:49 | disposition home or self-care (01) ==
LOC: DL.ED 13:34
DX: S82.62XA Displaced fracture of lateral malleolus of left fibula, initial encounter for closed fracture (principal); Z88.8 Allergy status to other drugs, medicaments and biological substances; Z79.899 Other long term (current) drug therapy; W10.9XXA Fall (on) (from) unspecified stairs and steps, initial encounter; Y92.009 Unspecified place in unspecified non-institutional (private) residence as the place of occurrence of the external cause
CPT/HCPCS: 73610; 96374; 99283; 99284; J1170

== ENCOUNTER 2020-11-04 21:54 | Emergency (ER) | payer MEDICAID ==
[2020-11-04 22:42] VITALS: BP 107/61; PULSE 92
--- NOTE | 2020-11-04 22:49 | EDM.PDOC ---
ED HPI GENERAL MEDICAL PROBLEM - General Stated Complaint: HAD LAP SDS TODAY ONE OF WOUNDS OPENED Time Seen by Provider: 11/04/20 22:40 Source of Information: Reports: Patient History Limitations: Reports: No Limitations - History of Present Illness INITIAL COMMENTS - FREE TEXT/NARRATIVE: This 39 yo female reports to the ED due to a surgical wound opening up. The patient had a laparoscopic hysterectomy today in [place]. The patient reports she was scratching her abdomen when one of the surgical wounds opened up. Onset: Today Duration: Minutes: Location: Reports: Abdomen Quality: Reports: Other Severity: Mild Improves with: Reports: None Worsens with: Reports: None Context: Reports: Other Associated Symptoms: Reports: No Other Symptoms - Related Data Allergies Allergy/AdvReac Type Severity Reaction Status Date / Time chlorpheniramine Allergy Cannot Verified 08/04/20 13:51 [From [facility]] Remember dihydrocodeine bitartrate Allergy Cannot Verified 08/04/20 13:51 [From [facility]] Remember phenylephrine HCl Allergy Cannot Verified 08/04/20 13:51 [[facility] Remember pseudoephedrine Allergy Cannot Verified 08/04/20 13:51 [From [facility]] Remember pseudoephedrine HCl Allergy Cannot Verified 08/04/20 13:51 [From [facility]] Remember triprolidine [From [facility]] Allergy Cannot Verified 08/04/20 13:51 Remember donagel Allergy Cannot Uncoded 08/04/20 13:51 Remember Home Meds: Home Meds Pnv No.95/Ferrous Fum/Folic AC [ Vitamins Tablet] 1 tab PO DAILY 03/30/18 [History] Ergocalciferol (Vitamin D2) [Vitamin D2] 50,000 unit PO WEEKLY 08/02/19 [History] Sertraline HCl 25 mg PO DAILY 11/24/19 [History] buPROPion [Wellbutrin] 75 mg PO 1600 11/24/19 [History] buPROPion [Wellbutrin] 150 mg PO DAILY 11/24/19 [History] busPIRone [Buspar] 15 mg PO BID 11/24/19 [History] Pantoprazole [ProTONIX] 40 mg PO BEDTIME #14 tab.cr 11/26/19 [Rx] oxyCODONE 5 mg PO Q4H PRN #5 tablet 11/26/19 [Rx] Past Medical History - Past Health History Medical/Surgical History: Denies Medical/Surgical History HEENT History: Reports: Impaired Vision Other HEENT History: wears glasses Cardiovascular History: Reports: None Respiratory History: Reports: None Gastrointestinal History: Reports: Cholelithiasis, Pancreatitis Genitourinary History: Reports: None 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 Musculoskeletal History: Reports: None Neurological History: Reports: None Psychiatric History: Reports: ADD, Anxiety, Depression Endocrine/Metabolic History: Reports: Other (See Below) Other Endocrine/Metabolic History: PREDIABETIC Hematologic History: Reports: None, Iron Deficiency Other Hematologic History: iron deficient during usually Immunologic History: Reports: None Oncologic (Cancer) History: Reports: None Dermatologic History: Reports: None - Infectious Disease History Infectious Disease History: Reports: Chicken Pox - Past Surgical History Head Surgeries/Procedures: Reports: None HEENT Surgical History: Reports: Oral Surgery, Tonsillectomy Cardiovascular Surgical History: Reports: None Respiratory Surgical History: Reports: None GI Surgical History: Reports: Cholecystectomy Other GI Surgeries/Procedures: December 03, 2016 Female Surgical History: Reports: Tubal Ligation, Other (See Below) Other Female Surgeries/Procedures: CULPOSCOMY, October 30, 2019-tubal Endocrine Surgical History: Reports: None Neurological Surgical History: Reports: None Musculoskeletal Surgical History: Reports: None Social & Family History - Family History Family Medical History: No Pertinent Family History Cardiac: Reports: Arrhythmia, Other (See Below) Other Cardiac Family History: heart disease Psychiatric: Reports: Depression Endocrine/Metabolic: Reports: Diabetes, Type I Oncologic: Reports: Esophageal Other Oncologic Family History: throat cancer - Caffeine Use Caffeine Use: Reports: None ED ROS GENERAL - Review of Systems Review Of Systems: Comprehensive ROS is negative, except as noted in HPI. ED EXAM, SKIN/RASH Exam: See Below Exam Limited By: No Limitations General Appearance: Alert, WD/WN, No Apparent Distress Eye Exam: Bilateral Eye: EOMI, Normal Inspection, PERRL Ears: Normal External Exam, Hearing Grossly Normal Nose: Normal Inspection, No Blood Throat/Mouth: Normal Lips, Normal Teeth, Normal Gums, Normal Voice, No Airway Compromise Head: Atraumatic, Normocephalic Neck: Normal Inspection, Supple, Non-Tender, Full Range of Motion Respiratory/Chest: No Respiratory Distress, Lungs Clear, Normal Breath Sounds Cardiovascular: Normal Peripheral Pulses, Regular Rate, Rhythm GI/Abdominal: Normal Bowel Sounds, Soft, Non-Tender, No Organomegaly, No Distention, No Abnormal Bruit, No Mass, Pelvis Stable, Other (Obese. The patient does have a surgical wound that opened up over her umbilicus. The wound is only open to the surface, but appears to be sutured along the base of the wound. There is no drainage. ) (Female) Exam: Deferred Rectal (Female) Exam: Deferred Back Exam: Normal Inspection, Full Range of Motion, NT Extremities: Normal Inspection, Normal Range of Motion, Non-Tender, No Pedal Edema, Normal Capillary Refill Neurological: Alert, Oriented, CN II-XII Intact, Normal Cognition, Normal Gait, Normal Reflexes, No Motor/Sensory Deficits Psychiatric: Normal Affect, Normal Mood ED SKIN PROCEDURES - Laceration/Wound Repair Abdomen Appearance: Subcutaneous Distal NVT: Neuro & Vascular Intact Anesthetic Type: Local Exploration/Debridement/Repair: Wound Explored Closed with: Steri-Strips Lac/Wound length In cm: 1.5 Course - Vital Signs Last Recorded V/S: Last Vital Signs Temp 98.5 F 11/04/20 22:36 Pulse 92 11/04/20 22:36 Resp 16 11/04/20 22:36 BP 107/61 11/04/20 22:36 Pulse Ox 96 11/04/20 22:36 Departure - Departure Time of Disposition: 22:47 Disposition: Home, Self-Care 01 Condition: Fair Clinical Impression: Abdominal wound dehiscence Qualifiers: Encounter type: initial encounter Qualified Code(s): T81.30XA - Disruption of wound, unspecified, initial encounter - Discharge Information *PRESCRIPTION DRUG MONITORING PROGRAM REVIEWED*: Not Applicable *COPY OF PRESCRIPTION DRUG MONITORING REPORT IN PATIENT SHANKAR: Not Applicable Forms: ED Department Discharge Care Plan Goals: The patient was advised of the examination results during the visit. The patient's wound was closed with Steri-strips during the visit. The patient was encouraged to keep the area clean and dry over the next 24 hours. The patient should follow all post surgical instruction given by the surgeon. If the patient has any additional symptoms or concerns, the patient should either return to the emergency department or visit her primary care facility. Sepsis Event Note (ED) - Evaluation Sepsis Screening Result: No Definite Risk - Focused Exam Vital Signs: Vital Signs Temp Pulse Resp BP Pulse Ox 11/04/20 22:36 98.5 F 92 16 107/61 96
== END 2020-11-04 22:58 | disposition home or self-care (01) ==
LOC: DL.ED 21:54
DX: T81.31XA Disruption of external operation (surgical) wound, not elsewhere classified, initial encounter (principal); Z88.8 Allergy status to other drugs, medicaments and biological substances; Z79.899 Other long term (current) drug therapy
CPT/HCPCS: 99282

== ENCOUNTER 2020-11-05 20:38 | Emergency (ER) | payer MEDICAID ==
--- NOTE | 2020-11-05 21:00 | EDM.PDOC ---
ED HPI GENERAL MEDICAL PROBLEM - General Stated Complaint: SDS INCISION COMING APART Time Seen by Provider: 11/05/20 20:50 Source of Information: Reports: Patient History Limitations: Reports: No Limitations - History of Present Illness INITIAL COMMENTS - FREE TEXT/NARRATIVE: Vag hyst yesterday Dago beltran steri strips and dressing came off umbilical lap site, Incisional Pain Score (Numeric/FACES): 3 - Related Data Allergies Allergy/AdvReac Type Severity Reaction Status Date / Time chlorpheniramine Allergy Cannot Verified 11/05/20 21:17 [From [facility]] Remember dihydrocodeine bitartrate Allergy Cannot Verified 11/05/20 21:17 [From [facility]] Remember phenylephrine HCl Allergy Cannot Verified 11/05/20 21:17 [From [facility]] Remember pseudoephedrine Allergy Cannot Verified 11/05/20 21:17 [From [facility]] Remember pseudoephedrine HCl Allergy Cannot Verified 11/05/20 21:17 [From [facility]] Remember triprolidine [From [facility]] Allergy Cannot Verified 11/05/20 21:17 Remember donagel Allergy Cannot Uncoded 08/04/20 13:51 Remember Home Meds: Home Meds Pnv No.95/Ferrous Fum/Folic AC [ Vitamins Tablet] 1 tab PO DAILY 03/30/18 [History] Ergocalciferol (Vitamin D2) [Vitamin D2] 50,000 unit PO WEEKLY 08/02/19 [History] Sertraline HCl 25 mg PO DAILY 11/24/19 [History] buPROPion [Wellbutrin] 75 mg PO 1600 11/24/19 [History] buPROPion [Wellbutrin] 150 mg PO DAILY 11/24/19 [History] busPIRone [Buspar] 15 mg PO BID 11/24/19 [History] Pantoprazole [ProTONIX] 40 mg PO BEDTIME #14 tab.cr 11/26/19 [Rx] oxyCODONE 5 mg PO Q4H PRN #5 tablet 11/26/19 [Rx] Ferrous Sulfate 325 mg PO DAILY 11/05/20 [History] cycloSPORINE [Restasis Multidose] 1 drop EYEBOTH DAILY 11/05/20 [History] Past Medical History - Past Health History Medical/Surgical History: Denies Medical/Surgical History HEENT History: Reports: Impaired Vision Other HEENT History: wears glasses Cardiovascular History: Reports: None Respiratory History: Reports: None Gastrointestinal History: Reports: Cholelithiasis, Pancreatitis Genitourinary History: Reports: None 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 Musculoskeletal History: Reports: None Neurological History: Reports: None Psychiatric History: Reports: ADD, Anxiety, Depression Endocrine/Metabolic History: Reports: Other (See Below) Other Endocrine/Metabolic History: PREDIABETIC Hematologic History: Reports: None, Iron Deficiency Other Hematologic History: iron deficient during usually Immunologic History: Reports: None Oncologic (Cancer) History: Reports: None Dermatologic History: Reports: None - Infectious Disease History Infectious Disease History: Reports: Chicken Pox - Past Surgical History Head Surgeries/Procedures: Reports: None HEENT Surgical History: Reports: Oral Surgery, Tonsillectomy Cardiovascular Surgical History: Reports: None Respiratory Surgical History: Reports: None GI Surgical History: Reports: Cholecystectomy Other GI Surgeries/Procedures: December 03, 2016 Female Surgical History: Reports: Tubal Ligation, Other (See Below) Other Female Surgeries/Procedures: CULPOSCOMY, October 30, 2019-tubal Endocrine Surgical History: Reports: None Neurological Surgical History: Reports: None Musculoskeletal Surgical History: Reports: None Social & Family History - Family History Family Medical History: No Pertinent Family History Cardiac: Reports: Arrhythmia, Other (See Below) Other Cardiac Family History: heart disease Psychiatric: Reports: Depression Endocrine/Metabolic: Reports: Diabetes, Type I Oncologic: Reports: Esophageal Other Oncologic Family History: throat cancer - Caffeine Use Caffeine Use: Reports: None ED ROS GENERAL - Review of Systems Review Of Systems: Comprehensive ROS is negative, except as noted in HPI. ED EXAM, SKIN/RASH Exam: See Below Exam Limited By: No Limitations General Appearance: Alert, No Apparent Distress Ears: Hearing Grossly Normal Throat/Mouth: Normal Voice Head: Atraumatic, Normocephalic Neck: Normal Inspection Respiratory/Chest: No Respiratory Distress, Lungs Clear, Normal Breath Sounds Cardiovascular: Regular Rate, Rhythm GI/Abdominal: Normal Bowel Sounds Extremities: Normal Range of Motion Neurological: Alert, Oriented, Normal Cognition Psychiatric: Normal Affect, Normal Mood Skin: Warm, Dry, Intact, Normal Color Location, Skin: Other (surgical lap incision umbilicus open, no drainage. ) Course - Vital Signs Last Recorded V/S: Last Vital Signs Temp 98.1 F 11/05/20 21:12 Pulse 75 11/05/20 21:12 Resp 16 11/05/20 21:12 BP 121/63 11/05/20 21:12 Pulse Ox 96 11/05/20 21:12 Departure - Departure Time of Disposition: 20:59 Disposition: Home, Self-Care 01 Condition: Good Clinical Impression: Abdominal wound dehiscence Qualifiers: Encounter type: initial encounter Qualified Code(s): T81.30XA - Disruption of wound, unspecified, initial encounter - Discharge Information *PRESCRIPTION DRUG MONITORING PROGRAM REVIEWED*: No *COPY OF PRESCRIPTION DRUG MONITORING REPORT IN PATIENT SHANKAR: No Instructions: Wound Dehiscence, [id number], Wound Care, Adult Referrals: Joaine Abdalla MD [Primary Care Provider] - Forms: ED Department Discharge Additional Instructions: keep area clean and dry follow up surgical clinic in am cover with bandaide dressing, change twice daily follow up with surgical office if any redness drainage or fever Sepsis Event Note (ED) - Focused Exam Vital Signs: Vital Signs Temp Pulse Resp BP Pulse Ox 11/05/20 21:12 98.1 F 75 16 121/63 96
[2020-11-05 21:13] VITALS: BP 121/63; PULSE 75
== END 2020-11-05 21:10 | disposition home or self-care (01) ==
LOC: DL.ED 20:38
DX: T81.30XA Disruption of wound, unspecified, initial encounter (principal); Z90.49 Acquired absence of other specified parts of digestive tract; Z88.8 Allergy status to other drugs, medicaments and biological substances; Z88.5 Allergy status to narcotic agent; Z91.048 Other nonmedicinal substance allergy status
CPT/HCPCS: 99282

== ENCOUNTER 2021-10-28 22:29 | Emergency (ER) | payer MEDICAID ==
[2021-10-28 23:45] LABS: ANION GAP 11.6 mEq/L (7-13); CHLORIDE,CL 107 mmol/L (98-107); SODIUM,NA 142 mmol/L (136-145)
[2021-10-28 23:48] LABS: ESTIMATED GFR 89 mL/min (>=60)
[2021-10-29 00:43] VITALS: BP 116/68; PULSE 66
== END 2021-10-29 00:55 | disposition home or self-care (01) ==
LOC: DL.ED 22:29
DX: R10.12 Left upper quadrant pain (principal); Z88.8 Allergy status to other drugs, medicaments and biological substances; Z79.899 Other long term (current) drug therapy; Z87.19 Personal history of other diseases of the digestive system
CPT/HCPCS: 36415; 80053; 80307; 82150; 83605; 83690; 85025; 99284

== ENCOUNTER 2023-11-29 11:08 | Observation (INO) | payer MEDICAID ==
[2023-11-29] MEDS: Famotidine 20 MG/2 ML SDV IVPUSH ONE (10:15)
[2023-11-29] MEDS: Ondansetron 4 MG/2 ML SDV IVPUSH ONE ×2 (10:15→12:07)
[2023-11-29] MEDS: Sodium Chloride 0.9% 1,000 ML IV ONE ×2 (10:15→11:57)
[2023-11-29] MEDS: 50% Dextrose in Water 50 ML Syringe IVPUSH ONE (10:32)
[2023-11-29] MEDS: Iopamidol 612 MG/ML 100 ML Bottle IVPUSH ONE (10:44)
[2023-11-29 11:04] LABS: APPEARANCE,URINE CLEAR (CLEAR); BILIRUBIN,URINE NEGATIVE (NEGATIVE); COLOR,URINE YELLOW (YELLOW); GLUCOSE,URINE NEGATIVE (NEGATIVE); KETONES,URINE 80 (NEGATIVE); LEUKOCYTE ESTERASE,URINE NEGATIVE (NEGATIVE); NITRITE,URINE POSITIVE (NEGATIVE); OCCULT BLOOD,URINE TRACE-INTACT (NEGATIVE); PROTEIN,URINE NEGATIVE (NEGATIVE); UROBILINOGEN,URINE 0.2 mg/dL (0.2-1.0)
[2023-11-29 11:09] LABS: AMPHETAMINES,URINE NEGATIVE (NEGATIVE); BARBITURATES,URINE NEGATIVE (NEGATIVE); BENZODIAZEPINE,URINE NEGATIVE (NEGATIVE); MDMA (ECSTASY), URINE NEGATIVE (NEGATIVE); METHADONE,URINE NEGATIVE (NEGATIVE); METHAMPHETAMINES,URINE NEGATIVE (NEGATIVE); OPIATES,URINE NEGATIVE (NEGATIVE); OXYCODONE,URINE NEGATIVE (NEGATIVE); PHENCYCLIDINE,URINE NEGATIVE (NEGATIVE); TCA,URINE NEGATIVE (NEGATIVE)
[2023-11-29 11:18] LABS: BASOPHILS PERCENT AUTO 0.2 % (0.0-1.0); EOSINOPHILS PERCENT AUTO 0.2 % (1.0-3.0); HEMATOCRIT 39.9 % (37.0-47.0); HEMOGLOBIN 13.2 g/dL (12.0-16.0); LYMPHOCYTES PERCENT AUTO 10.7 % (20.5-50.1); MEAN CORPUSCULAR HEMOGLOBIN 30.1 pg (27.0-34.0); MEAN CORPUSCULAR HGB CONC 33.1 g/dL (33.0-35.0); MEAN CORPUSCULAR VOLUME 91.1 fL (80-100); MONOCYTES PERCENT AUTO 8.9 % (2-8); PLATELET COUNT,PLT 189 10^3/uL (150-450); RED BLOOD CELL COUNT 4.38 10^6/uL (4.2-5.4); WHITE BLOOD CELL COUNT,WBC 6.1 10^3/uL (5.0-10.0)
[2023-11-29 11:40] LABS: ALANINE AMINOTRANSFERASE,ALT 31 U/L (14-59); ALBUMIN 2.9 g/dL (3.4-5.0); ALKALINE PHOSPHATASE 94 U/L (46-116); ANION GAP 12.6 mEq/L (7-13); ASPARTATE AMNIOTRANSFERASE,AST 32 U/L (15-37); BILIRUBIN TOTAL 0.8 mg/dL (0.2-1.0); BLOOD UREA NITROGEN,BUN 10 mg/dL (7-18); BUN/CREATININE RATIO 15.9 (No establ ref range); CALCIUM 7.6 mg/dL (8.5-10.1); CARBON DIOXIDE,CO2 25 mmol/L (21-32); CHLORIDE,CL 105 mmol/L (98-107); CREATININE 0.63 mg/dL (0.55-1.02); EST CRCL DRUG DOSING (CG) 127.08 mL/min; GLUCOSE RANDOM 155 mg/dL (70-99); LIPASE 22 U/L (16-77); MAGNESIUM 1.6 mg/dL (1.8-2.4); POTASSIUM,K 3.6 mmol/L (3.5-5.1); PROTEIN TOTAL,TP 6.2 g/dL (6.4-8.2); SODIUM,NA 139 mmol/L (136-145)
[2023-11-29 11:41] LABS: A/G RATIO 0.88; ESTIMATED GFR 114 mL/min (>=60); ETHANOL BLOOD MEDICAL < 3 mg/dL (0)
[2023-11-29] MEDS: cefTRIAXone 1 GM Vial IVPUSH ONE (11:56)
[2023-11-29] MEDS: Magnesium Sulfate/Water 2 GM in Premix Bag 1 BAG IV ONE (11:57)
[2023-11-29 11:59] LABS: PROTHROMBIN TIME 10.3 SEC (9.0-12.0)
[2023-11-29 12:09] LABS: RBC,URINE 0-5 /HPF (0-5)
[2023-11-29 12:10] LABS: AMORPHOUS SEDIMENT,URINE FEW /HPF (NOT SEEN); BACTERIA,URINE MODERATE /HPF (0-FEW/HPF); EPITHELIAL CELLS,URINE MODERATE /HPF (NOT SEEN); MUCUS,URINE FEW /LPF (NOT SEEN)
[2023-11-29] MEDS: Acetaminophen 500 MG Tab PO ONE (12:11)
[2023-11-29] MEDS: LORazepam 2 MG/ML SDV IVPUSH ONE (12:11)
[2023-11-29 14:19] VITALS: BP 134/68; PULSE 83
[2023-11-29] MEDS ORDERED: Sennosides/Docusate Sodium 50-8.6 MG Tab PO PRN (14:49)
[2023-11-29] MEDS ORDERED: Naloxone 2 MG/2 ML Syringe IVPUSH PRN (14:49)
[2023-11-29] MEDS ORDERED: Albuterol/Ipratropium 3.0-0.5 MG/3 ML Neb Soln NEB PRN (14:49)
[2023-11-29] MEDS ORDERED: HYDROmorphone 0.5 MG/0.5 ML Syringe IVPUSH PRN (14:49)
[2023-11-29] MEDS ORDERED: Ibuprofen 600 MG Tab PO PRN (14:49)
[2023-11-29] MEDS ORDERED: Magnesium Hydroxide 400 MG/5 ML Susp 30 ML Cup PO PRN (14:49)
[2023-11-29] MEDS ORDERED: Ondansetron 4 MG/2 ML SDV IVPUSH PRN (14:49)
[2023-11-29] MEDS ORDERED: Promethazine 25 MG/ML SDV IM PRN (14:49)
[2023-11-29] MEDS ORDERED: Polyethylene Glycol 3350 Powder 17 GM Packet PO PRN (14:49)
[2023-11-29] MEDS ORDERED: hydrALAZINE 20 MG/ML SDV IVPUSH PRN (14:54)
[2023-11-29] MEDS ORDERED: Metoprolol Tartrate 5 MG/5 ML SDV IVPUSH PRN (14:54)
[2023-11-29] MEDS ORDERED: PHENobarbital 64.8 MG Tab PO PRN ×3 (14:55)
[2023-11-29] MEDS ORDERED: LORazepam 2 MG/ML SDV IVPUSH PRN (14:58)
[2023-11-29] MEDS ORDERED: Flumazenil 0.1 MG/ML 5 ML MDV IVPUSH PRN (14:59)
[2023-11-29] MEDS: PHENobarbitaL sodium 260 MG in Sodium Chloride 0.9% 100 ML IV ONE (15:37)
[2023-11-29] MEDS: traMADol 50 MG Tab PO PRN (16:07)
[2023-11-29] MEDS: MVI, Adult with Vitamin K 10 ML, Folic Acid 1 MG, Thiamine 100 MG in Lactated Ringers 1... IV ONE (16:30)
[2023-11-29] MEDS: Folic Acid 50 MG/10 ML MDV ONE (16:36)
[2023-11-30] MEDS ORDERED: Folic Acid 1 MG Tab PO SCH (09:00)
[2023-11-30] MEDS ORDERED: Saccharomyces Boulardii (Probiotic) 250 MG Cap PO SCH (09:00)
[2023-11-30] MEDS ORDERED: Thiamine 100 MG Tab PO SCH (09:00)
[2023-11-30] MEDS ORDERED: Multivitamin Tab PO SCH (09:00)
[2023-11-30] MEDS ORDERED: cefTRIAXone 1 GM Vial IVPUSH SCH (09:00)
== END 2023-11-29 17:55 | disposition left against medical advice (07) ==
LOC: DL.ED 11:08 → DL.MS 12:39
PROVIDERS: ADMIT Internal Medicine; ATTEND Internal Medicine
DX: F10.239 Alcohol dependence with withdrawal, unspecified (principal); E83.42 Hypomagnesemia; F32.A Depression, unspecified; F41.9 Anxiety disorder, unspecified; F17.210 Nicotine dependence, cigarettes, uncomplicated; Z79.899 Other long term (current) drug therapy; Z88.8 Allergy status to other drugs, medicaments and biological substances
CPT/HCPCS: 36415; 70450; 71045; 74177; 80053; 80305-QW; 80307; 81001; 82947; 83690; 83735; 84484; 84703; 85025; 85610; 87086; 87088; 87186; 93005; 93010; 96361; 96365; 96366; 96367; 96375; 99284; 99285-25; A9270-GY; G0378; J0696; J2060; J2405; J2560; J3411; J3475; J3490; J7030; J7120; Q9967

== ENCOUNTER 2024-07-24 05:55 | Day surgery (SDC) | payer MEDICAID ==
[2024-07-24] MEDS ORDERED: Midazolam 1 MG/ML 2 ML SDV IV ONE (05:56)
[2024-07-24] MEDS ORDERED: fentaNYL 100 MCG/2 ML SDV IV ONE (05:56)
[2024-07-24] MEDS ORDERED: Midazolam 1 MG/ML 2 ML SDV ONE (06:25)
[2024-07-24] MEDS ORDERED: fentaNYL 100 MCG/2 ML SDV ONE (06:25)
[2024-07-24] MEDS: Dextrose 5%-0.45% NaCl 1,000 ML IV SCH (06:49)
[2024-07-24] MEDS: fentaNYL 100 MCG/2 ML SDV IV ONE ×5 (07:21→07:39)
[2024-07-24] MEDS: Midazolam 1 MG/ML 2 ML SDV IV ONE ×6 (07:22→07:28)
[2024-07-24 09:36] VITALS: BP 102/67; PULSE 60
== END 2024-07-24 09:53 | disposition home or self-care (01) ==
LOC: DL.ENDO 05:55
PROVIDERS: ATTEND Internal Medicine Gastroenterology
DX: Z12.11 Encounter for screening for malignant neoplasm of colon (principal); F17.210 Nicotine dependence, cigarettes, uncomplicated; Z80.0 Family history of malignant neoplasm of digestive organs; Z88.8 Allergy status to other drugs, medicaments and biological substances
CPT/HCPCS: 45378; J2250; J3010; J7799

== ENCOUNTER 2024-12-10 01:24 | Emergency (ER) | payer MEDICAID ==
[2024-12-10 01:37] LABS: BASOPHILS PERCENT AUTO 0.5 % (0.0-1.0); EOSINOPHILS PERCENT AUTO 2.4 % (1.0-3.0); LYMPHOCYTES PERCENT AUTO 40.1 % (20.5-50.1); MONOCYTES PERCENT AUTO 11.5 % (2-8); NEUTROPHILS PERCENT AUTO 45.5 % (42.2-75.2); PLATELET COUNT,PLT 239 10^3/uL (150-450); RED BLOOD CELL COUNT 5.04 10^6/uL (4.2-5.4); WHITE BLOOD CELL COUNT,WBC 5.5 10^3/uL (5.0-10.0)
[2024-12-10 02:20] LABS: A/G RATIO 0.9; ALANINE AMINOTRANSFERASE,ALT 26 U/L (14-59); ASPARTATE AMNIOTRANSFERASE,AST 24 U/L (15-37); BILIRUBIN TOTAL 0.3 mg/dL (0.2-1.0); BLOOD UREA NITROGEN,BUN 8 mg/dL (7-18); CARBON DIOXIDE,CO2 24 mmol/L (21-32); CHLORIDE,CL 107 mmol/L (98-107); CREATININE 0.60 mg/dL (0.55-1.02); EST CRCL DRUG DOSING (CG) 132.08 mL/min; ESTIMATED GFR 115 mL/min (>=60); GLUCOSE RANDOM 84 mg/dL (70-99); POTASSIUM,K 3.1 mmol/L (3.5-5.1); PROTEIN TOTAL,TP 7.2 g/dL (6.4-8.2); SODIUM,NA 143 mmol/L (136-145)
[2024-12-10 02:23] LABS: LACTIC ACID 1.7 mmol/L (0.4-2.0)
[2024-12-10] MEDS: Ketorolac 30 MG/ML SDV IVPUSH ONE (02:40)
[2024-12-10] MEDS: Take Home: Potassium Chloride 10 MEQ Tab, 10 Tab Pack PO ONE (02:40)
[2024-12-10] MEDS: Sodium Chloride 0.9% 10 ML Syringe FLUSH PRN (02:40)
[2024-12-10 03:09] LABS: APPEARANCE,URINE CLOUDY (CLEAR); GLUCOSE,URINE NEGATIVE (NEGATIVE); OCCULT BLOOD,URINE NEGATIVE (NEGATIVE)
[2024-12-10] MEDS: Ondansetron 4 MG/2 ML SDV IVPUSH ONE (03:13)
[2024-12-10 03:24] LABS: EPITHELIAL CELLS,URINE MANY /HPF (NOT SEEN)
[2024-12-10 03:52] VITALS: BP 109/61; PULSE 88
== END 2024-12-10 04:00 | disposition home or self-care (01) ==
LOC: DL.ED 01:24
DX: K52.9 Noninfective gastroenteritis and colitis, unspecified (principal); Z88.8 Allergy status to other drugs, medicaments and biological substances; Z79.899 Other long term (current) drug therapy
CPT/HCPCS: 36415; 74018; 80053; 81001; 83605; 83690; 83735; 85025; 86140; 96361; 96374; 96375; 99284; A9270; J1885; J2765; J7030

== ENCOUNTER 2025-02-11 05:35 | Day surgery (SDC) | payer BC, MEDICAID, OTHER ==
[2025-02-11] MEDS ORDERED: Propofol 200 MG/20 ML SDV ONE (05:44)
[2025-02-11] MEDS: Lactated Ringers 1,000 ML IV SCH (06:15)
[2025-02-11 07:56] VITALS: BP 124/76; PULSE 77
== END 2025-02-11 08:27 | disposition home or self-care (01) ==
LOC: DL.ENDO 05:35
PROVIDERS: ATTEND Internal Medicine Gastroenterology
DX: R63.4 Abnormal weight loss (principal); F32.A Depression, unspecified; D64.9 Anemia, unspecified; E61.1 Iron deficiency; F17.210 Nicotine dependence, cigarettes, uncomplicated; Z88.8 Allergy status to other drugs, medicaments and biological substances; Z98.84 Bariatric surgery status; Z79.899 Other long term (current) drug therapy
CPT/HCPCS: 43239; J7120